=== PATIENT | female | born 1935 | race Caucasian/White ===

== ENCOUNTER 2020-05-19 12:13 | Emergency (ER) | payer MEDICARE ==
[2020-05-19 12:19] VITALS: TEMP 97.7
[2020-05-19] MEDS ORDERED: SODIUM CHLORIDE 0.9% 1,000 ML IV STA (12:28)
--- NOTE | 2020-05-19 12:29 | ED ---
Fall HPI - General Chief Complaint: Fall Stated Complaint: Syncope Time Seen by Provider: 05/19/20 12:25 Source: patient, RN notes reviewed, old records reviewed Mode of arrival: wheelchair - History of Present Illness Initial Comments: This is an 84-year-old female DF for evaluation she is safe for evaluation regards to weakness, patient's, wound and that was unable to get up from EMS and brought to ER. Patient denies any complaint. Denying pain or trauma. No recent travel history or sick contacts. 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 ROS Other: All systems not noted in ROS Statement are negative. Past Medical History Past Medical History: Cancer Additional Past Medical History / Comment(s): breast cancer 1991, heart palpitations, skin cancer, colon cancer 2006 History of Any Multi-Drug Resistant Organisms: None Reported Past Surgical History: Breast Surgery, Hysterectomy Additional Past Surgical History / Comment(s): ulcer surgery, left finger relase surgery Past Psychological History: No Psychological Hx Reported Smoking Status: Never smoker Past Alcohol Use History: None Reported Past Drug Use History: None Reported General Exam Limitations: no limitations General appearance: alert, in no apparent distress Head exam: Present: atraumatic, normocephalic, normal inspection Eye exam: Present: normal appearance, PERRL, EOMI. Absent: scleral icterus, conjunctival injection, periorbital swelling ENT exam: Present: normal exam, mucous membranes moist Neck exam: Present: normal inspection. Absent: tenderness, meningismus, lymphadenopathy Respiratory exam: Present: normal lung sounds bilaterally. Absent: respiratory distress, wheezes, rales, rhonchi, stridor Cardiovascular Exam: Present: regular rate, normal rhythm, normal heart sounds. Absent: systolic murmur, diastolic murmur, rubs, gallop, clicks GI/Abdominal exam: Present: soft, normal bowel sounds. Absent: distended, tenderness, guarding, rebound, rigid Extremities exam: Present: normal inspection, full ROM, normal capillary refill. Absent: tenderness, pedal edema, joint swelling, calf tenderness Back exam: Present: normal inspection Neurological exam: Present: alert, oriented X3, CN II-XII intact Psychiatric exam: Present: normal affect, normal mood Skin exam: Present: warm, dry, intact, normal color. Absent: rash Course Vital Signs 05/19/20 12:15 Temperature 97.7 F Pulse Rate 79 Respiratory 20 Rate Blood Pressure 127/61 O2 Sat by Pulse 99 Oximetry - Reevaluation(s) Reevaluation #1: 05/19/20 15:30 Medical record is reviewed Reevaluation #2: 05/19/20 15:31 Patient would does feel improved, prefers discharge Medical Decision Making - Medical Decision Making 84 female DF for evaluation of fall weakness. Patient was unable to ambulate brought to ER patient feeling well now able to amply here in the ER mild urinary tract infection feeling better with hydration can be discharged home - Lab Data Result diagrams: 05/19/20 12:32 05/19/20 12:32 Lab Results 05/19/20 05/19/20 05/19/20 Range/Units 12:32 12:32 12:32 WBC 3.9 (3.8-10.6) k/uL RBC 4.21 (3.80-5.40) m/uL Hgb 12.0 (11.4-16.0) gm/dL Hct 39.4 (34.0-46.0) % MCV 93.4 (80.0-100.0) fL MCH 28.4 (25.0-35.0) pg MCHC 30.4 L (31.0-37.0) g/dL RDW 13.4 (11.5-15.5) % Plt Count 130 L (150-450) k/uL Neutrophils % 82 % Lymphocytes % 10 % Monocytes % 6 % Eosinophils % 1 % Basophils % 1 % Neutrophils # 3.1 (1.3-7.7) k/uL Lymphocytes # 0.4 L (1.0-4.8) k/uL Monocytes # 0.2 (0-1.0) k/uL Eosinophils # 0.0 (0-0.7) k/uL Basophils # 0.0 (0-0.2) k/uL Hypochromasia Slight PT 9.7 (9.0-12.0) sec INR 0.9 (<1.2) APTT 22.3 (22.0-30.0) sec Sodium 137 (137-145) mmol/L Potassium 3.8 (3.5-5.1) mmol/L Chloride 109 H (98-107) mmol/L Carbon Dioxide 21 L (22-30) mmol/L Anion Gap 7 mmol/L BUN 30 H (7-17) mg/dL Creatinine 1.76 H (0.52-1.04) mg/dL Est GFR (CKD-EPI)AfAm 30 (>60 ml/min/1.73 sqM) Est GFR (CKD-EPI)NonAf 26 (>60 ml/min/1.73 sqM) Glucose 189 H (74-99) mg/dL Plasma Lactic Acid [place] (0.7-2.0) mmol/L Calcium 9.6 (8.4-10.2) mg/dL Phosphorus 3.4 (2.5-4.5) mg/dL Magnesium 1.9 (1.6-2.3) mg/dL Total Bilirubin 0.4 (0.2-1.3) mg/dL AST 29 (14-36) U/L ALT 20 (4-34) U/L Alkaline Phosphatase 62 (38-126) U/L Creatine Kinase 88 (30-135) U/L CK-MB (CK-2) (0.0-2.4) ng/mL Troponin I (0.000-0.034) ng/mL Total Protein 6.2 L (6.3-8.2) g/dL Albumin 3.8 (3.5-5.0) g/dL Urine Color Urine Appearance (Clear) Urine pH (5.0-8.0) Ur Specific [place] (1.001-1.035) Urine Protein (Negative) Urine Glucose (UA) (Negative) Urine Ketones (Negative) Urine Blood (Negative) Urine Nitrite (Negative) Urine Bilirubin (Negative) Urine Urobilinogen (<2.0) mg/dL Ur Leukocyte Esterase (Negative) Urine RBC (0-5) /hpf Urine WBC (0-5) /hpf Ur Squamous Epith Cells (0-4) /hpf Urine Bacteria (None) /hpf Hyaline Casts (0-2) /lpf Urine Mucus (None) /hpf 05/19/20 05/19/20 05/19/20 Range/Units 12:32 12:32 14:17 WBC (3.8-10.6) k/uL RBC (3.80-5.40) m/uL Hgb (11.4-16.0) gm/dL Hct (34.0-46.0) % MCV (80.0-100.0) fL MCH (25.0-35.0) pg MCHC (31.0-37.0) g/dL RDW (11.5-15.5) % Plt Count (150-450) k/uL Neutrophils % % Lymphocytes % % Monocytes % % Eosinophils % % Basophils % % Neutrophils # (1.3-7.7) k/uL Lymphocytes # (1.0-4.8) k/uL Monocytes # (0-1.0) k/uL Eosinophils # (0-0.7) k/uL Basophils # (0-0.2) k/uL Hypochromasia PT (9.0-12.0) sec INR (<1.2) APTT (22.0-30.0) sec Sodium (137-145) mmol/L Potassium (3.5-5.1) mmol/L Chloride (98-107) mmol/L Carbon Dioxide (22-30) mmol/L Anion Gap mmol/L BUN (7-17) mg/dL Creatinine (0.52-1.04) mg/dL Est GFR (CKD-EPI)AfAm (>60 ml/min/1.73 sqM) Est GFR (CKD-EPI)NonAf (>60 ml/min/1.73 sqM) Glucose (74-99) mg/dL Plasma Lactic Acid [place] 1.2 (0.7-2.0) mmol/L Calcium (8.4-10.2) mg/dL Phosphorus (2.5-4.5) mg/dL Magnesium (1.6-2.3) mg/dL Total Bilirubin (0.2-1.3) mg/dL AST (14-36) U/L ALT (4-34) U/L Alkaline Phosphatase (38-126) U/L Creatine Kinase (30-135) U/L CK-MB (CK-2) 0.9 (0.0-2.4) ng/mL Troponin I <0.012 (0.000-0.034) ng/mL Total Protein (6.3-8.2) g/dL Albumin (3.5-5.0) g/dL Urine Color Yellow Urine Appearance Cloudy H (Clear) Urine pH 5.5 (5.0-8.0) Ur Specific [place] 1.010 (1.001-1.035) Urine Protein Trace H (Negative) Urine Glucose (UA) Negative (Negative) Urine Ketones Negative (Negative) Urine Blood Trace H (Negative) Urine Nitrite Positive H (Negative) Urine Bilirubin Negative (Negative) Urine Urobilinogen <2.0 (<2.0) mg/dL Ur Leukocyte Esterase Large H (Negative) Urine RBC 4 (0-5) /hpf Urine WBC 113 H (0-5) /hpf Ur Squamous Epith Cells <1 (0-4) /hpf Urine Bacteria Many H (None) /hpf Hyaline Casts 10 H (0-2) /lpf Urine Mucus Rare H (None) /hpf - EKG Data -: EKG Interpreted by Me (EKG shows sinus rhythm of 75, TX 144 QRS 68 QTc 450) - Radiology Data Radiology results: report reviewed (X-ray chest and pelvis negative for traum atic injury), image reviewed Disposition Clinical Impression: Fall, UTI (urinary tract infection) Disposition: HOME SELF-CARE Condition: Good Instructions (If sedation given, give patient instructions): Fall Prevention for Older Adults (ED), Urinary Tract Infection in Women (ED) Prescriptions: Cephalexin [Keflex] 500 mg PO Q6HR #20 cap Is patient prescribed a controlled substance at d/c from ED?: No Referrals: Angelito Worrell MD [Primary Care Provider] - 1-2 days
[2020-05-19 12:49] LABS: Basophils % (A) 1 %; Eosinophils % (A) 1 %; HCT 39.4 % (34.0-46.0); Hypochromasia Slight; Lymphocytes # (A) 0.4 k/uL (1.0-4.8); Lymphocytes % (A) 10 %; MCH 28.4 pg (25.0-35.0); MCHC 30.4 g/dL (31.0-37.0); MCV 93.4 fL (80.0-100.0); Mean Platelet Volume 8.3; Monocytes # (A) 0.2 k/uL (0-1.0); Monocytes % (A) 6 %; Neutrophils # (A) 3.1 k/uL (1.3-7.7); Neutrophils % (A) 82 %; Platelet Count 130 k/uL (150-450); RBC 4.21 m/uL (3.80-5.40); RDW 13.4 % (11.5-15.5); WBC 3.9 k/uL (3.8-10.6)
--- NOTE | 2020-05-19 12:55 | XR ---
EXAMINATION TYPE: XR pelvis AP view DATE OF EXAM: 05/19/2020 COMPARISON: NONE HISTORY: Pain The osseous structures are intact and the joint spaces are preserved. No acute fracture is seen. Vi sualized bowel gas pattern is nonspecific. There is either contrast or staghorn calculus within the left renal pelvis. Arthropathy of the hips. Calcifications in the pelvis likely vascular. Surgical ch toro in the right lower quadrant. IMPRESSION: 1. No acute fracture. 2. Either contrast or staghorn calculus within the lower left renal pelvis.
--- NOTE | 2020-05-19 12:56 | XR ---
EXAMINATION TYPE: XR chest 1V DATE OF EXAM: 05/19/2020 COMPARISON: NONE HISTORY: Pain TECHNIQUE: Single frontal view of the chest is obtained. FINDINGS: There is no focal air space opacity, pleural effusion, or pneumothorax seen. The cardiac silhouette size is within normal limits. The osseous structures are intact. Surgical clips seen in the epigastrium IMPRESSION: No acute process.
[2020-05-19 12:59] LABS: Albumin 3.8 g/dL (3.5-5.0); Calcium 9.6 mg/dL (8.4-10.2); Magnesium 1.9 mg/dL (1.6-2.3); Phosphorus 3.4 mg/dL (2.5-4.5); Potassium 3.8 mmol/L (3.5-5.1); Total Bilirubin 0.4 mg/dL (0.2-1.3); Total Protein 6.2 g/dL (6.3-8.2)
[2020-05-19 13:06] LABS: INR 0.9 (<1.2); Partial Thromboplastin Time 22.3 sec (22.0-30.0); Prothrombin Time 9.7 sec (9.0-12.0)
[2020-05-19 13:23] LABS: Creatine Kinase MB 0.9 ng/mL (0.0-2.4); Troponin I <0.012 ng/mL (0.000-0.034)
[2020-05-19 14:45] LABS: Appearance,Urine Cloudy (Clear); Bacteria,Urine Many /hpf; Bilirubin,Urine Negative (Negative); Blood,Urine Trace (Negative); Color,Urine Yellow; Glucose,Urine (UA) Negative (Negative); Hyaline Casts,Urine 10 /lpf (0-2); Ketones,Urine Negative (Negative); Leukocyte Esterase,Urine Large (Negative); Mucus,Urine Rare /hpf; Nitrite,Urine Positive (Negative); PH, Urine 5.5 (5.0-8.0); Protein,Urine Trace (Negative); RBC,Urine 4 /hpf (0-5); Squamous Epithelial Cell,Urine <1 /hpf (0-4); Urobilinogen,Urine <2.0 mg/dL (<2.0); WBC,Urine 113 /hpf (0-5)
[2020-05-19] MEDS ORDERED: cefTRIAXone IN SWFI 1,000 MG/10 ML SYRINGE IVP STA (15:29)
[2020-05-19 15:47] VITALS: BP 141/86; PULSE 87; RESP 16
== END 2020-05-19 15:51 | disposition home or self-care (01) ==
LOC: EC 12:13
DX: N39.0 Urinary tract infection, site not specified (principal); Z88.0 Allergy status to penicillin; Z85.3 Personal history of malignant neoplasm of breast; Z85.828 Personal history of other malignant neoplasm of skin; Z85.038 Personal history of other malignant neoplasm of large intestine; W18.30XA Fall on same level, unspecified, initial encounter
CPT/HCPCS: 36415; 93005; 80053; 82550; 82553; 83605; 83735; 84100; 84484; 85025; 85610; 85730; 81001; 87086; 72170; 71045; 99284; 96374; 96361; J0696

== ENCOUNTER 2020-08-18 18:20 | Inpatient (IN) | payer MEDICARE ==
[2020-08-18] MEDS ORDERED: SODIUM CHLORIDE 0.9% 1,000 ML IV STA (18:26)
[2020-08-18] MEDS ORDERED: ADENOSINE 3 MG/ML 2 ML VIAL IVP STA (18:30)
--- NOTE | 2020-08-18 18:47 | ED ---
SOB HPI - General Stated Complaint: Weakness,High Heart Rate Time Seen by Provider: 08/18/20 18:20 - History of Present Illness Initial Comments: This 84-year-old female history of dementia palpitations recent mood swings who was brought in by EMS due to some weakness shortness of breath and palpitations. He also complained of shortness of breath with any type of movement. She is a poor historian secondary to her dementia per family she noted by paramedics have a heart rate of 170 this a go down to the 140s after a fluid bolus. Patient had no complaints chest pain no recent fevers chills nausea vomiting sweats she did have a recent negative Covid 19 test. No other complaints or modifying factors at this time MD Complaint: shortness of breath - Related Data Previous Rx's Medication Instructions Recorded Cephalexin [Keflex] 500 mg PO Q6HR #20 cap 05/19/20 Allergies Allergy/AdvReac Type Severity Reaction Status Date / Time Penicillins Allergy Rash/Hives Verified 08/18/20 18:46 Review of Systems ROS Statement: Those systems with pertinent positive or pertinent negative responses have been documented in the HPI. ROS Other: All systems not noted in ROS Statement are negative. Past Medical History Past Medical History: Cancer Additional Past Medical History / Comment(s): breast cancer 1991, heart palpitations, skin cancer, colon cancer 2006 History of Any Multi-Drug Resistant Organisms: None Reported Past Surgical History: Breast Surgery, Hysterectomy Additional Past Surgical History / Comment(s): ulcer surgery, left finger relase surgery Past Psychological History: No Psychological Hx Reported Smoking Status: Never smoker Past Alcohol Use History: None Reported Past Drug Use History: None Reported General Exam - General Exam Comments Initial Comments: this is a well-developed asthenic appearing female who is awake alert oriented times 2 General appearance: alert, in no apparent distress Head exam: Present: atraumatic, normocephalic, normal inspection Eye exam: Present: normal appearance, PERRL, EOMI. Absent: scleral icterus, conjunctival injection, periorbital swelling ENT exam: Present: mucous membranes dry Neck exam: Present: normal inspection. Absent: tenderness, meningismus, lymphadenopathy Respiratory exam: Present: normal lung sounds bilaterally. Absent: respiratory distress, wheezes, rales, rhonchi, stridor Cardiovascular Exam: Present: normal rhythm, tachycardia, normal heart sounds. Absent: systolic murmur, diastolic murmur, rubs, gallop, clicks GI/Abdominal exam: Present: soft, normal bowel sounds. Absent: distended, tenderness, guarding, rebound, rigid Extremities exam: Present: full ROM, normal capillary refill, other (Small ecchymotic areas seen to the proximal left volar forearm swallow tenderness for range of motion no step-off or crepitation.). Absent: tenderness, pedal edema, joint swelling, calf tenderness Back exam: Present: normal inspection Neurological exam: Present: alert, oriented X3, CN II-XII intact Psychiatric exam: Present: normal affect, normal mood Skin exam: Present: warm, dry, intact, normal color. Absent: rash Course Vital Signs 08/18/20 08/18/20 08/18/20 18:20 18:22 18:30 Temperature 98.5 F Pulse Rate 149 H 146 H 90 Respiratory 18 16 18 Rate Blood Pressure 113/79 113/79 113/79 O2 Sat by Pulse 100 98 Oximetry 08/18/20 08/18/20 08/18/20 18:40 19:12 20:00 Temperature Pulse Rate 77 80 67 Respiratory 18 16 16 Rate Blood Pressure 152/87 161/92 131/84 O2 Sat by Pulse 98 100 97 Oximetry 08/18/20 21:00 Temperature Pulse Rate Respiratory 16 Rate Blood Pressure 145/85 O2 Sat by Pulse Oximetry - Reevaluation(s) Reevaluation #1: 08/18/20 20:59 he postconversion EKG showed a sinus rhythm of 88. Interval 156 QRS duration 60 QT since QTC 360/435 possible left facial large with left exodeviation Procedures - Procedures Initial comment: patient did demonstrate evidence of SVT in the require urgent adenosine. She was given 6 mg with conversion to a normal sinus rhythm Medical Decision Making - Lab Data Result diagrams: 08/18/20 18:40 08/18/20 18:40 Lab Results 08/18/20 08/18/20 08/18/20 Range/Units 18:40 18:40 18:40 WBC 4.0 (3.8-10.6) k/uL RBC 3.92 (3.80-5.40) m/uL Hgb 11.7 (11.4-16.0) gm/dL Hct 37.5 (34.0-46.0) % MCV 95.7 (80.0-100.0) fL MCH 29.9 (25.0-35.0) pg MCHC 31.2 (31.0-37.0) g/dL RDW 13.0 (11.5-15.5) % Plt Count 154 (150-450) k/uL Neutrophils % 74 % Lymphocytes % 15 % Monocytes % 7 % Eosinophils % 2 % Basophils % 1 % Neutrophils # 3.0 (1.3-7.7) k/uL Lymphocytes # 0.6 L (1.0-4.8) k/uL Monocytes # 0.3 (0-1.0) k/uL Eosinophils # 0.1 (0-0.7) k/uL Basophils # 0.0 (0-0.2) k/uL Hypochromasia Slight PT 10.0 (9.0-12.0) sec INR 1.0 (<1.2) APTT 22.9 (22.0-30.0) sec D-Dimer (<0.60) mg/L FEU Sodium 139 (137-145) mmol/L Potassium 4.2 (3.5-5.1) mmol/L Chloride 113 H (98-107) mmol/L Carbon Dioxide 21 L (22-30) mmol/L Anion Gap 5 mmol/L BUN 27 H (7-17) mg/dL Creatinine 1.20 H (0.52-1.04) mg/dL Est GFR (CKD-EPI)AfAm 48 (>60 ml/min/1.73 sqM) Est GFR (CKD-EPI)NonAf 41 (>60 ml/min/1.73 sqM) Glucose 83 (74-99) mg/dL Calcium 8.8 (8.4-10.2) mg/dL Magnesium 2.0 (1.6-2.3) mg/dL Total Bilirubin 0.4 (0.2-1.3) mg/dL AST 27 (14-36) U/L ALT 18 (4-34) U/L Alkaline Phosphatase 66 (38-126) U/L Creatine Kinase 42 (30-135) U/L Troponin I (0.000-0.034) ng/mL Total Protein 5.7 L (6.3-8.2) g/dL Albumin 3.3 L (3.5-5.0) g/dL 11/02/20 11/02/20 Range/Units 18:40 18:40 WBC (3.8-10.6) k/uL RBC (3.80-5.40) m/uL Hgb (11.4-16.0) gm/dL Hct (34.0-46.0) % MCV (80.0-100.0) fL MCH (25.0-35.0) pg MCHC (31.0-37.0) g/dL RDW (11.5-15.5) % Plt Count (150-450) k/uL Neutrophils % % Lymphocytes % % Monocytes % % Eosinophils % % Basophils % % Neutrophils # (1.3-7.7) k/uL Lymphocytes # (1.0-4.8) k/uL Monocytes # (0-1.0) k/uL Eosinophils # (0-0.7) k/uL Basophils # (0-0.2) k/uL Hypochromasia PT (9.0-12.0) sec INR (<1.2) APTT (22.0-30.0) sec D-Dimer 0.61 H (<0.60) mg/L FEU Sodium (137-145) mmol/L Potassium (3.5-5.1) mmol/L Chloride (98-107) mmol/L Carbon Dioxide (22-30) mmol/L Anion Gap mmol/L BUN (7-17) mg/dL Creatinine (0.52-1.04) mg/dL Est GFR (CKD-EPI)AfAm (>60 ml/min/1.73 sqM) Est GFR (CKD-EPI)NonAf (>60 ml/min/1.73 sqM) Glucose (74-99) mg/dL Calcium (8.4-10.2) mg/dL Magnesium (1.6-2.3) mg/dL Total Bilirubin (0.2-1.3) mg/dL AST (14-36) U/L ALT (4-34) U/L Alkaline Phosphatase (38-126) U/L Creatine Kinase (30-135) U/L Troponin I <0.012 (0.000-0.034) ng/mL Total Protein (6.3-8.2) g/dL Albumin (3.5-5.0) g/dL - EKG Data -: EKG Interpreted by Me EKG Comments: initial EKG shows supraventricular tachycardia rate 144 QRS 64 QT since QTC 298/[address]-T wave configuration Disposition Clinical Impression: Supraventricular tachycardia Disposition: ADMITTED IP TO THIS HOSP Condition: Fair Referrals: Angelito Worrell MD [Primary Care Provider] - 1-2 days
[2020-08-18 18:48] LABS: Basophils % (A) 1 %; Eosinophils # (A) 0.1 k/uL (0-0.7); Eosinophils % (A) 2 %; HCT 37.5 % (34.0-46.0); HGB 11.7 gm/dL (11.4-16.0); Hypochromasia Slight; Lymphocytes # (A) 0.6 k/uL (1.0-4.8); Lymphocytes % (A) 15 %; MCH 29.9 pg (25.0-35.0); MCHC 31.2 g/dL (31.0-37.0); MCV 95.7 fL (80.0-100.0); Monocytes # (A) 0.3 k/uL (0-1.0); Monocytes % (A) 7 %; Neutrophils % (A) 74 %; Platelet Count 154 k/uL (150-450); RBC 3.92 m/uL (3.80-5.40)
[2020-08-18 18:58] LABS: Partial Thromboplastin Time 22.9 sec (22.0-30.0)
[2020-08-18 19:02] LABS: Albumin 3.3 g/dL (3.5-5.0); Calcium 8.8 mg/dL (8.4-10.2); Potassium 4.2 mmol/L (3.5-5.1); Total Bilirubin 0.4 mg/dL (0.2-1.3); Total Protein 5.7 g/dL (6.3-8.2)
--- NOTE | 2020-08-18 19:03 | XR ---
EXAMINATION TYPE: XR chest 2V DATE OF EXAM: 08/18/2020 COMPARISON: Chest x-ray 05/19/2020 HISTORY: Dysrhythmia TECHNIQUE: Frontal and lateral views of the chest are obtained. FINDINGS: There is no focal air space opacity, pleural effusion, or pneumothorax seen. The cardiac silhouette size is stable. The osseous structures are intact. Surgical clips are present in the upp er abdomen. Aorta is dense. Patient is rotated and there are overlying cardiac leads. IMPRESSION: No acute cardiopulmonary process.
[2020-08-18] MEDS ORDERED: NALOXONE 0.4 MG/ML 1 ML VIAL IV PRN (20:51)
[2020-08-18] MEDS ORDERED: atenoloL 25 MG TAB PO STA (20:56)
[2020-08-18] MEDS ORDERED: SODIUM CHLORIDE 0.9% 500 ML 500 ML IV STA (21:01)
[2020-08-18] MEDS: SODIUM CHLORIDE 0.9% 1,000 ML IV SCH (21:28)
--- NOTE | 2020-08-18 21:30 | XR ---
Left forearm HISTORY: Trauma and pain 2 views of left forearm Bone mineralization is reduced. Joint space loss present at the radiocarpal joint, carpometacarpal ezra int of the first digit. Alignment is maintained. IMPRESSION: No fracture or dislocation.
--- NOTE | 2020-08-18 22:00 | CT ---
EXAMINATION TYPE: CT angio chest DATE OF EXAM: 08/18/2020 COMPARISON: Chest x-ray same date HISTORY: Elevated d-dimer. Dysrhythmia with chest pain, shortness of breath and tachycardia, palpitat ions. CT DLP: 154.3 mGycm Automated exposure control for dose reduction was used. CONTRAST: CTA scan of the thorax is performed with IV Contrast, patient injected with 64ml mL of Isovue 370, pu lmonary embolism protocol. MIP images are created and reviewed. 3D reconstructed images are created on an independent workstation and reviewed. FINDINGS: LUNGS: The lungs are grossly clear, there is no concerning parenchymal mass or nodule identified. T here is no pleural effusion or pneumothorax seen. The tracheobronchial tree is patent. AORTA: No additional significant abnormality is seen. MEDIASTINUM: There is satisfactory enhancement of the pulmonary artery and its branches, there is no CT evidence for pulmonary embolism. There are no greater than 1 cm hilar or mediastinal lymph nodes. No pericardial effusion is seen. OTHER: The right breast prosthesis is present. Surgical clips present at the upper abdomen near the gastroesophageal junction. Low dense focus within the left lobe of the liver lateral segment measures 13 mm on axial image 122, smaller focus also present on axial image #111. Gastric wall thickening is nonspecific, low dense foci associated with the kidneys may represent cysts IMPRESSION: NO EVIDENT PULMONARY EMBOLISM. ADDITIONAL FINDINGS ABOVE.
--- NOTE | 2020-08-19 09:54 | P.CRDCN ---
History of Present Illness Consult date: 08/19/20 History of present illness: CHIEF COMPLAINT: SVT HISTORY OF PRESENT ILLNESS: This is a 84-year old female with a past medical history significant for colon cancer, breast cancer, and hyperlipidemia. Patient follows in the office with Dr. Rockwell. We have been asked to see the patient in consultation for SVT. Patient examined this morning bedside. Patient reports she has been feeling weak and has been trouble walking for the past couple weeks. She reports seen a neurologist and was told she may have Parkinson's disease. She reports yesterday she was sitting at home when she began to feel palpitations. She denies having any chest pain or shortness of breath. Patient presented to the emergency room and was found to be in SVT. She received 6 mg of adenosine and converted to sinus rhythm. She is maintaining sinus b radycardia this morning with a heart rate in the low 50s. It is noted that patient had a stress echo performed in 2019 according to office records which was negative for ischemia. DIAGNOSTICS: EKG reveals SVT Chest xray negative for acute process Laboratory data: WBC 4.0. Hemoglobin 11.7. Platelet count 154. D-dimer 0.61. Sodium 139. Potassium 4.2. BUN 27. Creatinine 1.20. Magnesium 2.0 troponin negative 3 CTA: Negative for PE Current home cardiac medications include Lipitor 20 mg daily REVIEW OF SYSTEMS: At the time of my exam: CONSTITUTIONAL: Denies fever or chills. HEENT: Denies blurred vision, vision changes, or eye pain. Denies hemoptysis CARDIOVASCULAR: Denies chest pain, orthopnea, PND or palpitations RESPIRATORY: No shortness of breath. GASTROINTESTINAL: Denies abdominal pain. Denies nausea or vomiting. HEMATOLOGIC: Denies bleeding disorders. GENITOURINARY: Denies any blood in urine. SKIN: Denies pruitis. Denies rash. PHYSICAL EXAM: VITAL SIGNS: Reviewed. GENERAL: Well-developed in no acute distress. HEENT: Head is normocephalic. Pupils are equal, round. Sclerae anicteric. Mucous membranes of the mouth are moist. Neck supple. No JVD or thyromegaly LUNGS: Respirations even and unlabored. Lungs essentially clear to auscultation bilaterally. HEART: Regular rate and rhythm. S1 and S2 heard. ABDOMEN: Soft. Nondistended. Nontender. EXTREMITIES: Normal range of motion. No clubbing or cyanosis. Peripheral pulses intact. No lower extremity edema NEUROLOGIC: Awake and alert. Oriented x 3. ASSESSMENT: SVT, status post conversion to sinus rhythm with adenosine Palpitations Hyperlipidemia, on statin therapy PLAN: Resume Lipitor Obtain 2-D echo to assess cardiac structure and function Patient bradycardic this morning with heart rate in the 50s. Will hold off on beta cooper at this time Patient to follow-up with Dr. Rockwell outpatient Nurse practitioner note has been reviewed by physician. Signing provider agrees with the documented findings, assessment, and plan of care. Past Medical History Past Medical History: Cancer Additional Past Medical History / Comment(s): breast cancer 1991, heart palpitations, skin cancer, colon cancer 2006 History of Any Multi-Drug Resistant Organisms: None Reported Past Surgical History: Breast Surgery, Hysterectomy Additional Past Surgical History / Comment(s): ulcer surgery, left finger relase surgery Past Psychological History: No Psychological Hx Reported Smoking Status: Never smoker Past Alcohol Use History: None Reported Past Drug Use History: None Reported Medications and Allergies Home Medications Medication Instructions Recorded Confirmed Type Atorvastatin Calcium [Lipitor] 20 mg PO DAILY 08/18/20 08/18/20 History FLUoxetine HCL [PROzac] 20 mg PO DAILY 08/18/20 08/18/20 History Multivitamins, Thera [Multivitamin 1 tab PO DAILY 08/18/20 08/18/20 History (formulary)] Allergies Allergy/AdvReac Type Severity Reaction Status Date / Time Penicillins Allergy Rash/Hives Verified 08/18/20 22:11 Physical Exam Vitals: Vital Signs Temp Pulse Pulse Resp BP BP Pulse Ox 08/19/20 08:45 98 F 58 L 16 130/63 100 08/19/20 04:00 98.6 F 55 L 18 121/61 98 08/19/20 00:01 98.4 F 60 18 147/65 98 08/18/20 23:29 97.6 F 56 L 16 116/65 97 08/18/20 21:00 16 145/85 08/18/20 20:00 67 16 131/84 97 08/18/20 19:12 80 16 161/92 100 08/18/20 18:40 77 18 152/87 98 08/18/20 18:30 90 18 113/79 98 08/18/20 18:22 146 H 16 113/79 08/18/20 18:20 98.5 F 149 H 18 113/79 100 Intake and Output 08/18/20 08/19/20 08/19/20 22:59 06:59 14:59 Intake Total 450 Balance 450 Intake: Oral 450 Other: Voiding Method Toilet Weight 38.555 kg 49 kg Results 08/18/20 18:40 08/18/20 18:40 Cardiac Enzymes 08/18/20 08/18/20 08/18/20 Range/Units 18:40 18:40 21:27 AST 27 (14-36) U/L Troponin I <0.012 <0.012 (0.000-0.034) ng/mL 08/19/20 Range/Units 01:24 AST (14-36) U/L Troponin I <0.012 (0.000-0.034) ng/mL Coagulation 08/18/20 Range/Units 18:40 PT 10.0 (9.0-12.0) sec APTT 22.9 (22.0-30.0) sec CBC 08/18/20 Range/Units 18:40 WBC 4.0 (3.8-10.6) k/uL RBC 3.92 (3.80-5.40) m/uL Hgb 11.7 (11.4-16.0) gm/dL Hct 37.5 (34.0-46.0) % Plt Count 154 (150-450) k/uL Comprehensive Metabolic Panel 08/18/20 Range/Units 18:40 Sodium 139 (137-145) mmol/L Potassium 4.2 (3.5-5.1) mmol/L Chloride 113 H (98-107) mmol/L Carbon Dioxide 21 L (22-30) mmol/L BUN 27 H (7-17) mg/dL Creatinine 1.20 H (0.52-1.04) mg/dL Glucose 83 (74-99) mg/dL Calcium 8.8 (8.4-10.2) mg/dL AST 27 (14-36) U/L ALT 18 (4-34) U/L Alkaline Phosphatase 66 (38-126) U/L Total Protein 5.7 L (6.3-8.2) g/dL Albumin 3.3 L (3.5-5.0) g/dL Current Medications Generic Name Dose Route Start Last Admin Trade Name Freq PRN Reason Stop Dose Admin Sodium Chloride 1,000 mls @ 20 mls/hr 08/18/20 21:00 08/18/20 21:28 Saline 0.9% IV 20 mls/hr .Q24H HARSHAD Administration Naloxone HCl 0.2 mg 08/18/20 20:51 Naloxone 0.4 Mg/Ml 1 Ml Vial IV Q2M PRN Opioid Reversal Intake and Output 08/18/20 08/19/20 08/19/20 22:59 06:59 14:59 Intake Total 450 Balance 450 Intake: Oral 450 Other: Voiding Method Toilet Weight 38.555 kg 49 kg 08/18/20 18:40 08/18/20 18:40
--- NOTE | 2020-08-19 10:39 | P.HPIM ---
History of Present Illness H&P Date: 08/19/20 Chief Complaint: Palpitations This is an 84-year-old female patient of Dr. Worrell with past medical history of dementia, hyperlipidemia, breast cancer, colon cancer, and depression. History obtained mainly from the chart, patient is a poor historian secondary to dementia. Patient reports she was at home watching a ball game on TV when she felt short of breath and palpitations. Patient presented to the emergency department where she was found to be in SVT. She received 6 mg of adenosine along with a fluid bolus and converted to sinus rhythm. Chest x-ray was negative for any acute cardiopulmonary process. Laboratory values reveal WBC 4.0, hemoglobin 12.7, d-dimer was 0.61, BUN 27, creatinine 1.2, magnesium 2.0. Troponin negative times 3. TSH and free T4 pending. She underwent a CTA chest that was negative for pulmonary embolism. Cardiology consult appreciated. 2-D echo is pending. No beta blockers initiated due to patient is bradycardic with a heart rate in the 50s. Review of Systems Constitutional: Reports fatigue, Reports weakness, Denies chills, Denies fever Eyes: denies diplopia, denies discharge, denies loss of vision Ears: deny: decreased hearing, earache, tinnitus Ears, nose, mouth and throat: Denies dysphagia, Denies headache, Denies nasal congestion, Denies nasal discharge, Denies sinus pain, Denies sinus pressure, Denies sore throat Cardiovascular: Reports palpitations, Reports shortness of breath, Denies chest pain, Denies edema, Denies high blood pressure, Denies irregular heart beat, Den ies leg edema, Denies syncope Respiratory: Denies congestion, Denies cough, Denies dyspnea, Denies wheezing Gastrointestinal: Denies abdominal pain, Denies constipation, Denies diarrhea, Denies nausea, Denies vomiting Genitourinary: Denies difficulty voiding, Denies dysuria, Denies flank pain, Denies hematuria, Denies urgency Musculoskeletal: Denies fractures, Denies limitation of motion, Denies myalgias, Denies neck pain, Denies neck stiffness Integumentary: Denies lesions, Denies pruritus, Denies rash, Denies sores, Denies wounds Neurological: Reports memory loss, Reports weakness, Denies headaches, Denies loss of vision, Denies numbness, Denies paresthesias, Denies seizures, Denies syncope Psychiatric: Reports memory loss, Denies confusion, Denies disorientation, Denies hallucinations, Denies insomnia Hematologic/Lymphatic: Denies lymphadenopathy, Denies lymphedema, Denies thrombophilia Past Medical History Past Medical History: Cancer, Dementia Additional Past Medical History / Comment(s): breast cancer 1991, heart palpitations, skin cancer, colon cancer 2006 History of Any Multi-Drug Resistant Organisms: None Reported Past Surgical History: Breast Surgery, Hysterectomy Additional Past Surgical History / Comment(s): ulcer surgery, left finger relase surgery Past Psychological History: Depression Smoking Status: Former smoker Past Alcohol Use History: None Reported Past Drug Use History: None Reported - Past Family History Father Additional Family Medical History / Comment(s): father in his 50s due to heart disease Mother Family Medical History: Cancer ( in her 60s due to unknown causes, possible cancer ) Medications and Allergies Home Medications Medication Instructions Recorded Confirmed Type Atorvastatin Calcium [Lipitor] 20 mg PO DAILY 08/18/20 08/18/20 History FLUoxetine HCL [PROzac] 20 mg PO DAILY 08/18/20 08/18/20 History Multivitamins, Thera [Multivitamin 1 tab PO DAILY 08/18/20 08/18/20 History (formulary)] Ciprofloxacin HCl [Cipro] 250 mg PO Q12H 1 Days #7 tab 08/20/20 Rx Allergies Allergy/AdvReac Type Severity Reaction Status Date / Time Penicillins Allergy Rash/Hives Verified 08/18/20 22:11 Physical Exam Vitals: Vital Signs Temp Pulse Pulse Resp BP BP Pulse Ox 08/19/20 08:45 98 F 58 L 16 130/63 100 08/19/20 04:00 98.6 F 55 L 18 121/61 98 08/19/20 00:01 98.4 F 60 18 147/65 98 08/18/20 23:29 97.6 F 56 L 16 116/65 97 08/18/20 21:00 16 145/85 08/18/20 20:00 67 16 131/84 97 08/18/20 19:12 80 16 161/92 100 08/18/20 18:40 77 18 152/87 98 08/18/20 18:30 90 18 113/79 98 08/18/20 18:22 146 H 16 113/79 08/18/20 18:20 98.5 F 149 H 18 11379 100 Intake and Output 08/18/20 08/19/20 08/19/20 22:59 06:59 14:59 Intake Total 450 Balance 450 Intake: Oral 450 Other: Voiding Method Toilet Weight 38.555 kg 49 kg - Constitutional General appearance: average body habitus, cooperative, no acute distress - EENT Eyes: EOMI, PERRLA, normal appearance ENT: hearing grossly normal, normal oropharynx, no pharyngeal erythema, no thrush - Neck Neck: no lymphadenopathy, normal ROM, no rigidity, no stridor, no thyromegaly Thyroid: bilateral: normal size, negative: enlarged, firm, nodule - Respiratory Respiratory: bilateral: CTA, negative: diminished, dullness, rales - Cardiovascular Rhythm: regular Heart sounds: normal: S1, S2 - Gastrointestinal General gastrointestinal: no distended, no hepatomegaly, normal bowel sounds, no organomegaly, soft, splenomegaly, no tenderness - Neurologic Neurologic: CNII-XII intact - Musculoskeletal Musculoskeletal: generalized weakness, strength equal bilaterally - Psychiatric Psychiatric: appropriate affect mildly confused Results CBC & Chem 7: 08/18/20 18:40 08/18/20 18:40 Labs: Abnormal Lab Results - Last 24 Hours (Table) 08/18/20 08/18/20 08/18/20 Range/Units 18:40 18:40 18:40 Lymphocytes # 0.6 L (1.0-4.8) k/uL D-Dimer 0.61 H (<0.60) mg/L FEU Chloride 113 H (98-107) mmol/L Carbon Dioxide 21 L (22-30) mmol/L BUN 27 H (7-17) mg/dL Creatinine 1.20 H (0.52-1.04) mg/dL Total Protein 5.7 L (6.3-8.2) g/dL Albumin 3.3 L (3.5-5.0) g/dL Assessment and Plan Plan: 1. SVT status post conversion to sinus rhythm with adenosine. Will obtain 2-D echo to assess cardiac structure and function, beta blockers held due to bradycardia. CTA was negative for pulmonary embolism, will check UA along with TSH and Free T4. 2. Palpitations. Secondary to SVT, now converted to sinus rhythm. 3. Bradycardia. Will hold beta blockers at this time 3. Dementia. Currently not on any medications 4. Hyperlipidemia. Lipitor 20 mg daily. 5. DVT prophylaxis. Heparin 6. GI prophylaxis. Pantoprazole The above impression and plan of care have been discussed and directed by signing physician. Esperanza Alvarado nurse practitioner acting as scribe for signing physician.
[2020-08-19 11:14] VITALS: BMI 16.9
--- NOTE | 2020-08-19 11:39 | ECHOF ---
Referral Reason:SVT MEASUREMENTS -------- HEIGHT: 170.2 cm WEIGHT: 49.0 kg BP: 121/61 RVIDd: 2.2 cm (< 3.3) IVSd: 1.1 cm (0.6 - 1.1) LVIDd: 3.7 cm (3.9 - 5.3) LVPWd: 1.1 cm (0.6 - 1.1) IVSs: 1.2 cm LVIDs: 3.0 cm LVPWs: 1.3 cm LA Diam: 4.3 cm (2.7 - 3.8) LAESV Index (A-L): 33.92 ml/m Ao Diam: 3.0 cm (2.0 - 3.7) AV Cusp: 1.3 cm (1.5 - 2.6) MV EXCURSION: 13.015 mm (> 18.000) MV EF SLOPE: 80 mm/s (70 - 150) EPSS: 0.5 cm MV E Jeffery: 0.76 m/s MV DecT: 175 ms MV A Jeffery: 0.69 m/s MV E/A Ratio: 1.09 RAP: 5.00 mmHg RVSP: 29.49 mmHg FINDINGS -------- Sinus rhythm. This was a technically good study. LV size, wall thickness and systolic function are normal, with an EF greater than 55%. The left john tricular size is normal. The right ventricle is normal in size. The left atrium is mildly dilated. LA is midly dilated 29-33ml/m2. The right atrial size is normal. There is mild aortic valve sclerosis. Mild mitral regurgitation is present. Onwa-cu-ahkxhoix tricuspid regurgitation present. Right ventricular systolic pressure is normal at < 35 mmHg. There is no pulmonic regurgitation present. The aortic root size is normal. There is no pericardial effusion. CONCLUSIONS -------- 1. LV size, wall thickness and systolic function are normal, with an EF greater than 55%. 2. The left ventricular size is normal. 3. The right ventricle is normal in size. 4. The left atrium is mildly dilated. 5. LA is midly dilated 29-33ml/m2. 6. The right atrial size is normal. 7. There is mild aortic valve sclerosis. 8. Mild mitral regurgitation is present. 9. There is no pulmonic regurgitation present. 10. The aortic root size is normal. 11. There is no pericardial effusion. YARDER: Carly Lang RDCS
[2020-08-19] MEDS: ATORVASTATIN 20 MG TAB PO SCH (11:58)
[2020-08-19 13:30] LABS: Appearance,Urine Clear (Clear); Bacteria,Urine Moderate /hpf; Bilirubin,Urine Negative (Negative); Blood,Urine Negative (Negative); Color,Urine Light Yellow; Glucose,Urine (UA) Negative (Negative); Ketones,Urine Negative (Negative); Leukocyte Esterase,Urine Large (Negative); Mucus,Urine Rare /hpf; Nitrite,Urine Positive (Negative); PH, Urine 5.5 (5.0-8.0); Protein,Urine Negative (Negative); RBC,Urine 2 /hpf (0-5); Specific Gravity,Urine 1.019 (1.001-1.035); Urobilinogen,Urine <2.0 mg/dL (<2.0); WBC,Urine 31 /hpf (0-5)
[2020-08-19 14:20] LABS: Magnesium 2.2 mg/dL (1.6-2.3)
[2020-08-19 14:38] LABS: T4, Free (Free Thyroxine) 1.32 ng/dL (0.78-2.19)
[2020-08-19] MEDS: PANTOPRAZOLE 40 MG TABLET PO SCH (17:40)
[2020-08-19] MEDS: HEPARIN SODIUM,PORCINE 5,000 UNIT/ML 1 ML VIAL SQ SCH (20:55)
[2020-08-20] MEDS: SODIUM CHLORIDE 0.9% 1,000 ML IV SCH (05:36)
[2020-08-20] MEDS: PANTOPRAZOLE 40 MG TABLET PO SCH (06:25)
[2020-08-20 09:03] VITALS: RESP 18
[2020-08-20] MEDS: ATORVASTATIN 20 MG TAB PO SCH (09:06)
[2020-08-20] MEDS: HEPARIN SODIUM,PORCINE 5,000 UNIT/ML 1 ML VIAL SQ SCH (09:06)
--- NOTE | 2020-08-20 09:32 | P.DS ---
Providers Date of admission: 08/18/20 20:52 Attending physician: Lorri Cantu Consults: 08/18/20 20:53 Consult Physician Routine Consulting Provider: Golden Costa Consult Reason/Comments: SVT Do you want consulting provider notified?: Yes Primary care physician: Angelito Worrell [facility] Course: This is an 84-year-old female patient of Dr. Worrell with past medical history of dementia, hyperlipidemia, breast cancer, colon cancer, and depression. History obtained mainly from the chart, patient is a poor historian secondary to dementia. Patient reports she was at home watching a ball game on TV when she felt short of breath and palpitations. Patient presented to the emergency department where she was found to be in SVT. She received 6 mg of adenosine along with a fluid bolus and converted to sinus rhythm. Chest x-ray was negative for any acute cardiopulmonary process. Laboratory values reveal WBC 4.0, hemoglobin 12.7, d-dimer was 0.61, BUN 27, creatinine 1.2, magnesium 2.0. Troponin negative times 3. TSH and free T4 pending. She underwent a CTA chest that was negative for pulmonary embolism. Cardiology consult appreciated. 2-D echo is pending. No beta blockers initiated due to patient is bradycardic with a heart rate in the 50s. 08/20: Echo completed yesterday showed ejection fraction greater than 55%, left atrium is mildly dilated, mild aortic valve sclerosis, mild mitral r egurgitation. UA was positive for infection, urine culture is pending. She was started on Cipro. She had no further episodes of SVT. She'll be discharged home with follow-up with cardiology for possible Holter monitor. Discharge diagnoses 1. SVT status post conversion to sinus rhythm with adenosine. 2. Palpitations. 3. Bradycardia. 3. Dementia. 4. Hyperlipidemia. 5. UTI The above impression and plan of care have been discussed and directed by signing physician. Esperanza Alvarado nurse practitioner acting as scribe for signing physician. Patient Condition at Discharge: Fair Plan - Discharge Summary Discharge Rx Participant: Yes New Discharge Prescriptions: New Ciprofloxacin HCl [Cipro] 250 mg PO Q12H 1 Days #7 tab Continue Multivitamins, Thera [Multivitamin (formulary)] 1 tab PO DAILY FLUoxetine HCL [PROzac] 20 mg PO DAILY Atorvastatin Calcium [Lipitor] 20 mg PO DAILY Discharge Medication List Atorvastatin Calcium [Lipitor] 20 mg PO DAILY 08/18/20 [History] FLUoxetine HCL [PROzac] 20 mg PO DAILY 08/18/20 [History] Multivitamins, Thera [Multivitamin (formulary)] 1 tab PO DAILY 08/18/20 [History] Ciprofloxacin HCl [Cipro] 250 mg PO Q12H 1 Days #7 tab 08/20/20 [Rx] Follow up Appointment(s)/Referral(s): Neeraj Rockwell MD [STAFF PHYSICIAN] - 1 Week (, August 28, 3:45) Angelito Worrell MD [Primary Care Provider] - 1-2 days (, August 21, 9:15) Patient Instructions/Handouts: Supraventricular Tachycardia (DC) Activity/Diet/Wound Care/Special Instructions: HEART HEALTHY DIET ACTIVITY TOLERATED Discharge Disposition: HOME SELF-CARE
[2020-08-20 11:18] VITALS: BP 135/76; PULSE 62; TEMP 97.2
--- NOTE | 2020-08-20 11:27 | P.PN ---
Subjective Progress Note Date: 08/20/20 CHIEF COMPLAINT: SVT HISTORY OF PRESENT ILLNESS: Patient examined this might bedside. She denies chest pain or pressure. Denies shortness of breath. No further episodes of SVT. She remains in sinus mechanism. Heart rate is in the 50s. Echocardiogram completed reveals ejection fraction greater than 55% and mild mitral regurgitation. PHYSICAL EXAM: VITAL SIGNS: Reviewed. GENERAL: Well-developed in no acute distress. HEENT: Head is normocephalic. Pupils are equal, round. Sclerae anicteric. Mucous membranes of the mouth are moist. Neck supple. No JVD or thyromegaly LUNGS: Respirations even and unlabored. Lungs essentially clear to auscultation bilaterally. HEART: Regular rate and rhythm. S1 and S2 heard. ABDOMEN: Soft. Nondistended. Nontender. EXTREMITIES: Normal range of motion. No clubbing or cyanosis. Peripheral pulse s intact. No lower extremity edema NEUROLOGIC: Awake and alert. Oriented x 3. ASSESSMENT: SVT, status post conversion to sinus rhythm with adenosine Palpitations Hyperlipidemia, on statin therapy PLAN: Patient bradycardic with heart rate in the 50s. Will hold off on beta cooper at this time Patient is stable for discharge from a cardiac perspective Patient to follow-up with Dr. Rockwell outpatient Nurse practitioner note has been reviewed by physician. Signing provider agrees with the documented findings, assessment, and plan of care. Objective - Vital Signs Vital signs: Vital Signs Temp 97.2 F L 08/20/20 11:14 Pulse 62 08/20/20 11:14 Resp 18 08/20/20 11:14 BP 135/76 08/20/20 11:14 Pulse Ox 100 08/20/20 11:14 Intake & Output 08/19/20 08/20/20 08/20/20 18:59 06:59 18:59 Intake Total 1060 0 Balance 1060 0 Weight 49 kg 45.3 kg Intake: Oral 1060 0 Other: Voiding Method Toilet Toilet # Voids 2 1 1 - Labs CBC & Chem 7: 08/18/20 18:40 08/18/20 18:40 Labs: Abnormal Lab Results - Last 24 Hours (Table) 08/19/20 Range/Units 12:30 Urine Nitrite Positive H (Negative) Ur Leukocyte Esterase Large H (Negative) Urine WBC 31 H (0-5) /hpf Urine Bacteria Moderate H (None) /hpf Urine Mucus Rare H (None) /hpf Microbiology - Last 24 Hours (Table) 08/19/20 12:30 Urine Culture - Preliminary Urine,Voided
== END 2020-08-20 13:09 | disposition home or self-care (01) | DRG 309 ==
LOC: EC 18:20 → 3SCARD 20:52
PROVIDERS: ADMIT Family Medicine; ATTEND Family Medicine
DX: I47.1 Supraventricular tachycardia (principal); N39.0 Urinary tract infection, site not specified; F32.9 Major depressive disorder, single episode, unspecified; F03.90 Unspecified dementia, unspecified severity, without behavioral disturbance, psychotic disturbance, mood disturbance, and anxiety; E78.5 Hyperlipidemia, unspecified; Z85.3 Personal history of malignant neoplasm of breast; Z85.828 Personal history of other malignant neoplasm of skin; Z85.038 Personal history of other malignant neoplasm of large intestine; Z79.899 Other long term (current) drug therapy; Z87.891 Personal history of nicotine dependence; Z90.710 Acquired absence of both cervix and uterus; I08.0 Rheumatic disorders of both mitral and aortic valves; R00.1 Bradycardia, unspecified
CPT/HCPCS: 36415; 71046; 71275; 80053; 81001; 82550; 83735; 84439; 84443; 84484; 85025; 85379; 85610; 85730; 87077; 87086; 87186; 93005; 93306; 96361; 96374; 99285

== ENCOUNTER → 2021-03-30 | Outpatient (CLI) | payer MEDICARE ==
[2021-03-30 13:41] LABS: Basophils % (A) 1 %; Eosinophils # (A) 0.1 k/uL (0-0.7); Eosinophils % (A) 2 %; HCT 37.8 % (34.0-46.0); HGB 11.9 gm/dL (11.4-16.0); Hypochromasia Slight; Lymphocytes # (A) 0.8 k/uL (1.0-4.8); Lymphocytes % (A) 18 %; MCH 29.6 pg (25.0-35.0); MCHC 31.6 g/dL (31.0-37.0); MCV 93.8 fL (80.0-100.0); Monocytes # (A) 0.2 k/uL (0-1.0); Monocytes % (A) 5 %; Neutrophils % (A) 72 %; Platelet Count 183 k/uL (150-450); RBC 4.02 m/uL (3.80-5.40); RDW 13.7 % (11.5-15.5); WBC 4.2 k/uL (3.8-10.6)
[2021-03-30 13:48] LABS: Albumin 3.9 g/dL (3.5-5.0); Calcium 9.5 mg/dL (8.4-10.2); Potassium 4.9 mmol/L (3.5-5.1); Total Bilirubin 0.4 mg/dL (0.2-1.3); Total Protein 6.4 g/dL (6.3-8.2)
== END | disposition home or self-care (01) ==
LOC: EEVIPCON 12:13 → LABPAT 12:13
PROVIDERS: ATTEND Urology
DX: Z01.812 Encounter for preprocedural laboratory examination (principal); N20.0 Calculus of kidney
CPT/HCPCS: 36415; 80053; 85025

== ENCOUNTER 2021-04-08 07:30 | Inpatient (IN) | payer MEDICARE ==
--- NOTE | 2021-04-07 11:54 | P.GSHP ---
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 SHe come for a left pcnl. The risks, complications and alternatives have been discussed including sepsis, bleeding , injury to the kidney and adjacent organs, - Constitutional Constitutional: Denies chills, Denies fever - EENT Eyes: denies blurred vision, denies pain Ears, nose, mouth and throat: Denies headache, Denies sore throat - Cardiovascular Cardiovascular: Denies chest pain, Denies shortness of breath - Respiratory Respiratory: Denies cough, Denies 7 - Gastrointestinal Gastrointestinal: Denies abdominal pain, Denies diarrhea, Denies nausea, Denies vomiting - Genitourinary (Female) Genitourinary: Denies dysuria, Denies hematuria - Genitourinary (Male) Genitourinary: Denies dysuria, Denies hematuria - Musculoskeletal Musculoskeletal: Denies myalgias - Integumentary Integumentary: Denies pruritus, Denies rash - Neurological Neurological: Denies numbness, Denies weakness - Psychiatric Psychiatric: Denies anxiety, Denies depression - Endocrine Endocrine: Denies fatigue, Denies weight change Past Medical History Past Medical History: Cancer, Dementia, Hyperlipidemia, Neurologic Disorder Additional Past Medical History / Comment(s): Hx breast cancer 1991, skin cancer and colon cancer 2006, heart palpitations. Hx falling, reluctant to use walker. Early Stage Parkinson's. Vitamin D Deficiency. History of Any Multi-Drug Resistant Organisms: None Reported Past Surgical History: Breast Surgery, Hysterectomy Additional Past Surgical History / Comment(s): Ulcer surgery, left finger release surgery. Past Anesthesia/Blood Transfusion Reactions: No Reported Reaction Past Psychological History: Depression Additional Psychological History / Comment(s): Major Depressive Disorder. Smoking Status: Former smoker Past Alcohol Use History: None Reported Additional Past Alcohol Use History / Comment(s): Quit smoking 25-30 yrs ago. Past Drug Use History: None Reported - Past Family History Father Additional Family Medical History / Comment(s): Father in his 50's due to heart disease. Mother Family Medical History: Cancer Medications and Allergies Home Medications Medication Instructions Recorded Confirmed Type Multivitamins, Thera [Multivitamin 1 tab PO DAILY 08/18/20 04/02/21 History (formulary)] Atorvastatin [Lipitor] 10 mg PO DAILY 04/02/21 04/02/21 History Mirtazapine [Remeron] 7.5 mg PO HS 04/02/21 04/02/21 History Allergies Allergy/AdvReac Type Severity Reaction Status Date / Time Penicillins Allergy Rash/Hives Verified 04/02/21 15:07 Surgical - Exam - General mild pain, thin well developed, well nourished - Eyes PERRL - ENT no hearing loss - Neck trachea midline - Respiratory normal expansion, normal respiratory effort - Cardiovascular Rhythm: regular - Abdomen Abdomen: soft, non tender - Neurologic normal coordination, normal sensation - Musculoskeletal normal gait, normal posture - Psychiatric oriented to time, oriented to person, oriented to place, speech is normal, memory intact Results - Imaging CT scan - abdomen: report reviewed, image reviewed CT scan - pelvis: report reviewed, image reviewed Assessment and Plan Assessment: Impression: Left staghorn calculous, recurrent uti Plan: Left PCNL
[~2021-04-08 07:30] MED LIST: DEXAMETHASONE SOD PHOSPHATE 4 MG/ML 1 ML VIAL IV ONE; GENTAMICIN 70 MG in SODIUM CHLORIDE 0.9% 100 ML IVPB PRN; HYDROmorphone 0.5 MG/0.5 ML SYRINGE IVP PRN; LIDOCAINE 1% (10MG/ML) FOR IV START INTRADERMA PRN
--- NOTE | 2021-04-08 07:47 | XR ---
EXAMINATION TYPE: XR KUB DATE OF EXAM: 04/08/2021 7:42 AM CLINICAL HISTORY: Left kidney stone. TECHNIQUE: Single supine KUB image of the abdomen is obtained. COMPARISON: None. FINDINGS: Scattered gas is seen in non-distended small bowel loops. Gas and fecal material is seen in non-distended colon. There is a 4.1 cm dense lobulated structure identified in the left abdomen, of uncertain etiology. Anastomotic sutures are present in the right abdomen. Surgical clips are noted at the gastroesophagea l junction. IMPRESSION: 4.1 cm dense lobulated structure in the left abdomen is indeterminant on this examination. It may rep resent a large renal calculus or other etiology. CT could be obtained if clinically warranted. Postoperative changes are also seen, as described.
[2021-04-08] MEDS: LACTATED RINGERS 1,000 ML IV SCH (08:12)
[2021-04-08] MEDS ORDERED: ONDANSETRON 4 MG/2 ML VIAL ONE (08:13)
[2021-04-08] MEDS ORDERED: PROPOFOL 10 MG/ML 20 ML VIAL IV ONE (08:45)
[2021-04-08] MEDS ORDERED: LIDOCAINE 1% INJ 10MG/ML (20 ML MDV) ONE (08:45)
[2021-04-08] MEDS ORDERED: SUCCINYLCHOLINE CHLORIDE 100 MG/5 ML SYR IV ONE (08:45)
[2021-04-08] MEDS ORDERED: fentaNYL (PF) 50 MCG/ML 2 ML AMP ONE (08:45)
[2021-04-08] MEDS ORDERED: IOPAMIDOL-370 50ML BTL IRRIGATION ONE (08:59)
[2021-04-08] MEDS ORDERED: MAG HYDROX/AL HYDROX/SIMETH 30 ML CUP PO PRN (11:28)
[2021-04-08] MEDS ORDERED: ONDANSETRON 4 MG/2 ML VIAL IVP PRN (11:28)
[2021-04-08] MEDS ORDERED: NALOXONE 0.4 MG/ML 1 ML VIAL IV PRN (11:30)
--- NOTE | 2021-04-08 11:37 | P.OP ---
Date of Procedure: 04/08/21 Preoperative Diagnosis: Left renal stones, large, infected Postoperative Diagnosis: Left renal stones, large, infected Procedure(s) Performed: Cystoscopy, placement of occluding balloon catheter left, percutaneous nephrostomy 2 (Dr. Hernandez ) percutaneous nephrostolithotomy (large) with ultrasound placement of 24-Palauan reentry nephrostomy tube Anesthesia: JERSEY Surgeon: Koby Gerard Estimated Blood Loss (ml): 50 Pathology: other (Stone) Condition: stable Disposition: PACU Indications for Procedure: The patient is 85. She has had recurring urinary infections with bacteria consistent with stone formation. These infections are asymptomatic. She has a 4 cm plus left renal partial staghorn calculus. We discussed treatment options for the recurrent infections and stone. It was elected to remove the stone percutaneously Description of Procedure: The patient is brought to the operating suite. She is given a general endotracheal anesthesia on the transport gurney. She's placed in a frog position with sterile prep and drape. Cystoscopy Foroblique lens and 21-Palauan sheath identifies a left ureteral orifice which was intubated with a running balloon catheter passed up to the UPJ. It is secured to a 16-Palauan Mccullough The patient is placed in a prone position with care to airways and extremities. Dr. Hernandez of radiology performed percutaneous access to a left middle pole calyx thoroughly. I then dilate the tract to 30-Palauan. His note the there is either capsular scarring or significant mobility to the kidney as this is a difficult dilation. Once I dilate the tract to 30-Palauan pass a reentry sheath into the collecting system. The stone was identified. It appears to be an old hard calcium oxalate stone. With ultrasound I break the stone and suction or grasp the fragments and remove them. This removes the renal pelvic stone and the large middle pole stone but there is still lower pole calyceal stone. I can barely identify the ostium with the rigid scope but I eventually do but it is going to be too difficult to enter the rigid scope into the collecting system with the edema and the kidney as it sits. I then have Dr. Hernandez performed percutaneous access to the lower pole calyx of. We're able this obtain percutaneous access. We're unable dilate the tract into the lower pole calyx such that I could introduce a sheath. We attempted several techniques to do so but we are unable to 2 place an access sheath to the stone. I thus elected terminate the procedure. I place a 24-Palauan reentry sheath to the original access. I will leave that to dilate the tract so that I can look and secondarily with the flexible scope and laser lithotripsy to remove this. Patient awake and returned recovery room good condition. The position of the tube was confirmed fluoroscopically. The patient how procedure well. Blood loss approximately 50 mL.
[2021-04-08] MEDS ORDERED: HYDROmorphone PCA 10 MG/50 ML BAG IV PRN (12:30)
--- NOTE | 2021-04-08 12:54 | FL ---
EXAMINATION TYPE: FL Perc Nephrostomy New Access DATE OF EXAM: 04/08/2021 COMPARISON: CT from outside institution, KUB 04/08/2021 HISTORY: Hydronephrosis, ureteral obstruction with staghorn calculus. PROCEDURE: Maximal barrier technique was utilized, hand hygiene obtained with soap and water and alcohol-based h and rub. The skin overlying the left kidney was localized using fluoroscopy and the overlying skin p repped and draped. Skin elijah was made with a scalpel. Access was gained under fluoroscopy, following placement of a ureteral occlusion balloon by the referring clinician and instillation of air in the renal collecting system with a 21-gauge needle to the posterior left kidney. The access site was dila lenny, access site was upsized, safety wire deployed and subsequently a sheath was advanced into the re nal pelvis following dilation with balloon along the tract. The patient underwent nephrolithotomy by the referring clinician. I was asked to return to the operating room to provide a secondary access. Using similar technique ov erlying the calculus at the lower pole left kidney and following air instillation in the collecting s ystem a 21-gauge needle was advanced and subsequently a wire advanced through the needle into the col lecting system which was subsequently snared by the clinician through the existing sheath. Catheter a nd wire were upsized. Secondary access was attempted, balloon could not be advanced into the collecti ng system however. Additional attempts were aborted by the referring clinician. The patient remained in stable condition without complication. The patient was discharged to observation in the care of a nesthesia. 4.4 minutes fluoroscopy time, 6 intraoperative C-arm images document the procedure IMPRESSION: STATUS POST NEPHROSTOMY PLACEMENT FOR NEPHROLITHOTOMY WITH FLUOROSCOPIC GUIDANCE. THIS PROCEDURE PER FORMED BY THE UNDERSIGNED.
[2021-04-08] MEDS: MIRTAZAPINE 15 MG TAB PO SCH (22:32)
[2021-04-09] MEDS: DEXTROSE 5%-0.45% NACL 1,000 ML IV SCH ×6 (04:31→23:42)
[2021-04-09 06:10] LABS: HCT 26.9 % (34.0-46.0); MCH 30.4 pg (25.0-35.0); MCHC 33.2 g/dL (31.0-37.0); MCV 91.5 fL (80.0-100.0); Mean Platelet Volume 8.3; Platelet Count 160 k/uL (150-450); RBC 2.94 m/uL (3.80-5.40); RDW 13.8 % (11.5-15.5); WBC 9.9 k/uL (3.8-10.6)
[2021-04-09 06:25] LABS: HGB 8.9 gm/dL (11.4-16.0)
[2021-04-09] MEDS: LACTATED RINGERS 1,000 ML IV SCH (07:16)
[2021-04-09] MEDS: ATORVASTATIN 10 MG TAB PO SCH (08:13)
[2021-04-09] MEDS: ACETAMINOPHEN TAB 325 MG TAB PO PRN (11:09)
[2021-04-09] MEDS: HYDROcodone/APAP 5-325MG 1 EACH TAB PO PRN ×2 (12:09→17:46)
--- NOTE | 2021-04-09 12:20 | P.PN ---
Subjective Progress Note Date: 04/09/21 The patient is in her first postoperative day from an incompletely done percutaneous nephrostolithotomy on the left side to a very large stone (greater than 4 cm). The patient's nephrostomy tube has some old blood. The tube was irrigated. Her vital signs are stable. Her abdomen is soft. Her voided urine is clear. She feels relatively well. She does have some hunger. Her dressing had some bleeding last night and this morning is not too bad. I will increase her diet. Discussed with her and her daughter about a secondary nephrostolithotomy to remove the stone that is presumably infected. Tentatively I place this for next Tuesday depending on how the urine looks Objective - Vital Signs Vital signs: Vital Signs Temp 98.2 F 04/09/21 11:56 Pulse 79 04/09/21 11:56 Resp 18 04/09/21 11:56 BP 103/62 04/09/21 11:56 Pulse Ox 98 04/09/21 11:56 Intake & Output 04/08/21 04/09/21 04/09/21 18:59 06:59 18:59 Intake Total 1101.75 360 240 Output Total 730 1100 Balance 371.75 -740 240 Weight 49 kg Intake: IV 1101.75 Intake, IV Titration 360 Amount Dextrose 5%-0.45% NaCl 1, 150 000 ml @ 100 mls/hr IV . Q10H [facility] Rx#:[id number] Lactated Ringers 1,000 ml 210 @ 20 mls/hr IV .Q24H [facility] Rx#:[id number] Oral 240 Output: Drainage 200 Left Lower Back 100 Left Posterior Lateral 100 Chest Urine 710 900 Estimated Blood Loss 20 Other: Voiding Method Indwelling Catheter Indwelling Catheter - Labs CBC & Chem 7: 04/09/21 05:41 Labs: Abnormal Lab Results - Last 24 Hours (Table) 04/09/21 Range/Units 05:41 RBC 2.94 L (3.80-5.40) m/uL Hgb 8.9 L D (11.4-16.0) gm/dL Hct 26.9 L (34.0-46.0) %
[2021-04-09 15:30] VITALS: BMI 17.4
[2021-04-09] MEDS: MIRTAZAPINE 15 MG TAB PO SCH (20:51)
[2021-04-10] MEDS: LACTATED RINGERS 1,000 ML IV SCH (06:30)
[2021-04-10] MEDS: ATORVASTATIN 10 MG TAB PO SCH (08:01)
--- NOTE | 2021-04-10 08:01 | P.PN ---
Subjective Progress Note Date: 04/10/21 The patient is in her second postoperative day from a complicated left percutaneous nephrostolithotomy. She is feeling much better. She still has mild to moderate pain. The urine is clearing out of the nephrostomy tube. I will observe her for another 24 hours. I will plan on discharge home on . A secondary nephrostolithotomy will be done next Tuesday assuming the urine continues to clear. Objective - Vital Signs Vital signs: Vital Signs Temp 99.1 F 04/10/21 04:23 Pulse 94 04/10/21 04:23 Resp 18 04/10/21 04:23 BP 96/59 04/10/21 04:23 Pulse Ox 99 04/10/21 04:23 Intake & Output 04/09/21 04/10/21 04/10/21 18:59 06:59 18:59 Intake Total 1680 1500 Output Total 850 1050 Balance 830 450 Weight 49 kg Intake: Intake, IV Titration 1200 1200 Amount Dextrose 5%-0.45% NaCl 1, 1200 1200 000 ml @ 100 mls/hr IV . Q10H [facility] Rx#:[id number] Oral 480 300 Output: Drainage 50 200 Left Lower Back 50 200 Urine 800 850 Uretheral (Mccullough) 650 Other: Voiding Method Indwelling Catheter Indwelling Catheter - Labs CBC & Chem 7: 04/09/21 05:41
[2021-04-10] MEDS: HYDROcodone/APAP 5-325MG 1 EACH TAB PO PRN ×3 (11:43→21:30)
[2021-04-10] MEDS: DEXTROSE 5%-0.45% NACL 1,000 ML IV SCH (15:52)
--- NOTE | 2021-04-10 17:13 | P.PN ---
Progress Note - Text Progress Note Date: 04/10/21 This patient underwent a pcnl left 4 8 hours ago. she is 85 , lives alone. Because of weakness, anemia post surgical i will keep her in the hospital another 24 hours to make sure she can ambulate, handle the nephrostomy tube and that her pain is under control
[2021-04-10] MEDS: MIRTAZAPINE 15 MG TAB PO SCH (20:01)
[2021-04-11] MEDS: DEXTROSE 5%-0.45% NACL 1,000 ML IV SCH ×2 (05:45→19:45)
[2021-04-11] MEDS: LACTATED RINGERS 1,000 ML IV SCH (05:46)
[2021-04-11] MEDS: ATORVASTATIN 10 MG TAB PO SCH (08:43)
--- NOTE | 2021-04-11 09:05 | P.PN ---
Subjective Progress Note Date: 04/11/21 The patient is in the hospital status post percutaneous nephrostolithotomy left, incomplete. She is slowly recuperating. She has a large nephrostomy tube in the left side. There is leakage around the nephrostomy tube which is normal. The urine is clearing. She is still having some pain. Her mobility is limited and she is still being evaluated by physical therapy. She is not able to ambulate by herself yet. He is scheduled for a second look next Tuesday. She is not ready to go home due to her lack of ambulation and self-care. I will continue to observe her, get a PT assessment and reassess in the morning as to discharge assessment and follow-up. Objective - Vital Signs Vital signs: Vital Signs Temp 97.8 F 04/11/21 04:12 Pulse 77 04/11/21 04:12 Resp 18 04/11/21 04:12 BP 147/74 04/11/21 04:12 Pulse Ox 99 04/11/21 04:12 Intake & Output 04/10/21 04/11/21 04/11/21 18:59 06:59 18:59 Intake Total 1400 Output Total 1100 600 Balance -1100 800 Intake: Intake, IV Titration 900 Amount Dextrose 5%-0.45% NaCl 1, 900 000 ml @ 75 mls/hr IV . [id number] [facility] Rx#:[id number] Oral 500 Output: Drainage 100 600 Left Lower Back 100 600 Urine 1000 Uretheral (Mccullough) 1000 Other: Voiding Method Bedside Commode Bedside Commode Diaper Diaper Incontinent Incontinent # Voids 1 4 - Labs CBC & Chem 7: 04/09/21 05:41
[2021-04-11] MEDS: ACETAMINOPHEN TAB 325 MG TAB PO PRN ×2 (12:42→20:08)
[2021-04-11] MEDS: MIRTAZAPINE 15 MG TAB PO SCH (20:09)
[2021-04-11] MEDS: SULFAMETHOX-TMP 800-160MG 1 EACH TAB PO SCH (20:09)
[2021-04-12] MEDS: LACTATED RINGERS 1,000 ML IV SCH ×2 (01:15→22:59)
[2021-04-12] MEDS: DEXTROSE 5%-0.45% NACL 1,000 ML IV SCH ×2 (05:24→20:30)
[2021-04-12] MEDS: SULFAMETHOX-TMP 800-160MG 1 EACH TAB PO SCH (07:57)
[2021-04-12] MEDS: ATORVASTATIN 10 MG TAB PO SCH (07:57)
[2021-04-12] MEDS: ACETAMINOPHEN TAB 325 MG TAB PO PRN ×3 (08:01→20:54)
--- NOTE | 2021-04-12 08:44 | P.PN ---
Subjective Progress Note Date: 04/12/21 The patient is status post left percutaneous nephrostolithotomy for infected stone. She has had a slow postoperative recuperation. She is just starting to eat adequately. She is ambulating with some assistance. She is set up for rehab tomorrow because she is not able to care for herself or she was pre operatively. I did not feel safe sending her home by herself given that she had a nephrostomy tube and could not ambulate adequately and could not care for herself. She will stay in the rehab until Tuesday when we'll do a secondary percutaneous nephrostolithotomy. Hopefully the nephrostomy tube will be removed at that point in time. Whether she'll need to go back to rehab or can go home will be dependent on how she does. I'll obtain labs preoperatively today. Her urine is clearing. Her vital signs are stable. I did resume her Bactrim. She'll stay on that until her surgery. Objective - Vital Signs Vital signs: Vital Signs Temp 98.6 F 04/12/21 04:12 Pulse 75 04/12/21 04:12 Resp 16 04/12/21 04:12 BP 145/84 04/12/21 04:12 Pulse Ox 98 04/12/21 04:12 Intake & Output 04/11/21 04/12/21 04/12/21 18:59 06:59 18:59 Intake Total 900 1500 Output Total 300 Balance 900 1200 Intake: Intake, IV Titration 900 900 Amount Dextrose 5%-0.45% NaCl 1, 900 900 000 ml @ 75 mls/hr IV . [id number] [facility] Rx#:[id number] Oral 600 Output: Drainage 300 Left Lower Back 300 Other: Voiding Method Bedside Commode Bedside Commode Bedside Commode Diaper Diaper Diaper Incontinent Incontinent Incontinent # Voids 3 2 - Labs CBC & Chem 7: 04/09/21 05:41
[2021-04-12 09:51] LABS: HCT 26.2 % (34.0-46.0); HGB 8.5 gm/dL (11.4-16.0); MCH 30.1 pg (25.0-35.0); MCHC 32.3 g/dL (31.0-37.0); MCV 93.1 fL (80.0-100.0); Platelet Count 162 k/uL (150-450); RBC 2.82 m/uL (3.80-5.40); RDW 13.6 % (11.5-15.5); WBC 4.8 k/uL (3.8-10.6)
[2021-04-12 09:52] LABS: Basophils % (A) 0 %; Eosinophils # (A) 0.1 k/uL (0-0.7); Eosinophils % (A) 3 %; Hypochromasia Slight; Lymphocytes # (A) 0.5 k/uL (1.0-4.8); Lymphocytes % (A) 11 %; Mean Platelet Volume 8.4; Monocytes # (A) 0.3 k/uL (0-1.0); Monocytes % (A) 6 %; Neutrophils # (A) 3.7 k/uL (1.3-7.7); Neutrophils % (A) 78 %
[2021-04-12 10:21] LABS: ALT 21 U/L (4-34); AST 30 U/L (14-36); African American GFR (CKD) 38 (>60 ml/min/1.73 sqM); Albumin 2.7 g/dL (3.5-5.0); Albumin/Globulin Ratio 1.1; Alkaline Phosphatase 65 U/L (38-126); Anion Gap 5 mmol/L; Blood Urea Nitrogen 26 mg/dL (7-17); Calcium 8.8 mg/dL (8.4-10.2); Carbon Dioxide 21 mmol/L (22-30); Chloride 112 mmol/L (98-107); Globulin 2.4 g/dL; Glucose 119 mg/dL (74-99); Non-African American GFR(CKD) 33 (>60 ml/min/1.73 sqM); Potassium 4.2 mmol/L (3.5-5.1); Sodium 138 mmol/L (137-145); Total Bilirubin 0.6 mg/dL (0.2-1.3); Total Protein 5.1 g/dL (6.3-8.2)
[2021-04-12] MEDS: MIRTAZAPINE 15 MG TAB PO SCH (20:53)
[2021-04-12] MEDS: SULFAMETHOX-TMP 400-80MG 1 EACH TAB PO SCH (20:53)
--- NOTE | 2021-04-13 08:08 | P.DS ---
Providers Date of admission: 04/11/21 12:29 Attending physician: Koby Gerard Primary care physician: Viji Doran [facility] Hospital Course: 85 yo female admitted with an infected left renal stone. SHe underwent a pcnl 04/08 . the stone was not completely removed. SHe is due for a secondary pcnl left on04/15. She was self reliant prior to surgery but cannot completely care for herself so she will be transferred to a rehab until the secondary pcnl on 04/15 SHe will go with the ntube. SHe will resume her own meds plus bactrim Her condition is good. Patient Condition at Discharge: Good Plan - Discharge Summary Discharge Rx Participant: Yes New Discharge Prescriptions: New Sulfamethox-Tmp 800-160Mg [Bactrim DS 800-160 mg] 1 tab PO Q12HR #14 tab No Action Multivitamins, Thera [Multivitamin (formulary)] 1 tab PO DAILY Atorvastatin [Lipitor] 10 mg PO DAILY Mirtazapine [Remeron] 7.5 mg PO HS Discharge Medication List Multivitamins, Thera [Multivitamin (formulary)] 1 tab PO DAILY 08/18/20 [History] Atorvastatin [Lipitor] 10 mg PO DAILY 04/02/21 [History] Mirtazapine [Remeron] 7.5 mg PO HS 04/02/21 [History] Sulfamethox-Tmp 800-160Mg [Bactrim DS 800-160 mg] 1 tab PO Q12HR #14 tab 04/13/21 [Rx] Discharge Disposition: TRANSFER TO SNF/ECF
[2021-04-13] MEDS: SULFAMETHOX-TMP 400-80MG 1 EACH TAB PO SCH (08:57)
[2021-04-13] MEDS: ATORVASTATIN 10 MG TAB PO SCH (08:57)
[2021-04-13] MEDS: ACETAMINOPHEN TAB 325 MG TAB PO PRN (09:00)
[2021-04-13 11:31] VITALS: BP 97/62; PULSE 85; RESP 18; TEMP 97.2
[2021-04-13] MEDS: DEXTROSE 5%-0.45% NACL 1,000 ML IV SCH (13:13)
== END 2021-04-13 13:30 | DRG 661 ==
LOC: OR 07:30 → 5NMEDONC 14:03 → OR 04-09 08:37 → OBSVTOIN 04-11 12:29
PROVIDERS: ADMIT Urology; ATTEND Urology
PROC: 0T9130Z Drainage of Left Kidney with Drainage Device, Percutaneous Approach (ICD-10-PCS; principal; 2021-04-08 09:00)
PROC: 0T768DZ Dilation of Right Ureter with Intraluminal Device, Via Natural or Artificial Opening Endoscopic (ICD-10-PCS; principal; 2021-04-08 09:00)
PROC: 0TC18ZZ Extirpation of Matter from Left Kidney, Via Natural or Artificial Opening Endoscopic (ICD-10-PCS; principal; 2021-04-08 09:00)
DX: N13.6 Pyonephrosis (principal); N20.0 Calculus of kidney; G20 Parkinson's disease; D64.9 Anemia, unspecified; E78.5 Hyperlipidemia, unspecified; F02.80 Dementia in other diseases classified elsewhere, unspecified severity, without behavioral disturbance, psychotic disturbance, mood disturbance, and anxiety; F32.9 Major depressive disorder, single episode, unspecified; Z87.440 Personal history of urinary (tract) infections; Z91.81 History of falling; Z88.0 Allergy status to penicillin; Z79.899 Other long term (current) drug therapy; Z85.038 Personal history of other malignant neoplasm of large intestine; Z85.3 Personal history of malignant neoplasm of breast; Z85.828 Personal history of other malignant neoplasm of skin; Z87.891 Personal history of nicotine dependence; Z90.710 Acquired absence of both cervix and uterus
CPT/HCPCS: 50432; 74018; 80053; 82365; 85025; 85027; 86850; 86900; 86901; 94760

== ENCOUNTER 2021-04-15 10:01 | Day surgery (SDC) | payer MEDICARE ==
--- NOTE | 2021-04-11 13:47 | CONS ---
CONSULTATION Mrs. Doan is 85. 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 She underwent a percutaneous nephrostolithotomy on Tuesday. Postoperatively, she had some postoperative anemia. This did not require transfusion. She was ambulatory and self-care prior to surgery, but now cannot care for herself. I therefore do not feel comfortable sending her home for this reason. She would have to care for a nephrostomy tube and feed and dress herself, which she is just recuperating with at this point in time. When I deem it safe to discharge her home I will do so, but in the meanwhile she will continue to need care. She is scheduled for a secondary nephrostolithotomy on Tuesday next week. Her vital signs are otherwise stable. MMODL / IJN: [id number] /
[2021-04-14 11:29] VITALS: BMI 17.4
--- NOTE | 2021-04-14 19:57 | P.GSHP ---
History of Present Illness H&P Date: 04/14/21 85 yo female who underwent a left pcnl last . The stone was very large[>4cm] and the buld was removed but there remains a larger fragment in the llp Since the stone is infected she comes for secondary pcnl to remove the remainder of the stone - Constitutional Constitutional: Denies chills, Denies fever - EENT Eyes: denies blurred vision, denies pain Ears, nose, mouth and throat: Denies headache, Denies sore throat - Cardiovascular Cardiovascular: Denies chest pain, Denies shortness of breath - Respiratory Respiratory: Denies cough, Denies 7 - Gastrointestinal Gastrointestinal: Denies abdominal pain, Denies diarrhea, Denies nausea, Denies vomiting - Genitourinary (Female) Genitourinary: Denies dysuria, Denies hematuria - Genitourinary (Male) Genitourinary: Denies dysuria, Denies hematuria - Musculoskeletal Musculoskeletal: Denies myalgias - Integumentary Integumentary: Denies pruritus, Denies rash - Neurological Neurological: Denies numbness, Denies weakness - Psychiatric Psychiatric: Denies anxiety, Denies depression - Endocrine Endocrine: Denies fatigue, Denies weight change Past Medical History Past Medical History: Cancer, Dementia, Hyperlipidemia, Neurologic Disorder Additional Past Medical History / Comment(s): kidney stones-admission 04-08-21,breast cancer 1991, heart palpitations, skin cancer, colon cancer 200 7,SVT,hx falling-reluctant to use walker,early stage Parkinson's,vitamin D deficiency History of Any Multi-Drug Resistant Organisms: None Reported Past Surgical History: Breast Surgery, Hysterectomy Additional Past Surgical History / Comment(s): left nephrostomy tube placed- nephrolithotomy 04-08-21,ulcer surgery, left finger relase surgery Past Anesthesia/Blood Transfusion Reactions: No Reported Reaction Smoking Status: Former smoker - Past Family History Mother Family Medical History: Cancer Father Family Medical History: Coronary Artery Disease (CAD) Additional Family Medical History / Comment(s): in 50s due to heart disease Medications and Allergies Home Medications Medication Instructions Recorded Confirmed Type Multivitamins, Thera [Multivitamin 1 tab PO DAILY 08/18/20 04/14/21 History (formulary)] Atorvastatin [Lipitor] 10 mg PO DAILY 04/02/21 04/14/21 History Mirtazapine [Remeron] 7.5 mg PO HS 04/02/21 04/14/21 History Sulfamethox-Tmp 800-160Mg [Bactrim 1 tab PO Q12HR #14 tab 04/13/21 04/14/21 Rx DS 800-160 mg] Allergies Allergy/AdvReac Type Severity Reaction Status Date / Time Penicillins Allergy Rash/Hives Verified 04/14/21 10:12 Surgical - Exam - General well developed, well nourished - Eyes PERRL - ENT no hearing loss - Neck trachea midline - Respiratory normal expansion - Cardiovascular Rhythm: regular - Abdomen left perc neph tube Abdomen: soft, non tender - Integumentary no rash, no growths - Neurologic normal coordination, normal sensation - Musculoskeletal normal gait, normal posture - Psychiatric oriented to time, oriented to person, oriented to place, speech is normal, memory intact Assessment and Plan Assessment: Impression: retained infected left renal stone post pcnl Plan: Secondary pcnl left
[~2021-04-15 10:01] MED LIST changes: -GENTAMICIN 70 MG in SODIUM CHLORIDE 0.9% 100 ML IVPB PRN; +GENTAMICIN 80 MG in SODIUM CHLORIDE 0.9% 100 ML IVPB PRN; +LACTATED RINGERS 1,000 ML IV SCH; +MIDAZOLAM 2 MG/2 ML VIAL IV PRN; +ONDANSETRON 4 MG/2 ML VIAL IVP ONE; +Pre Op ABX Message 1 EACH MISC MISCELLANE ONE
[2021-04-15 10:44] VITALS: TEMP 97.6
--- NOTE | 2021-04-15 10:48 | XR ---
EXAMINATION TYPE: XR KUB DATE OF EXAM: 04/15/2021 COMPARISON: 04/08/2021 HISTORY: Kidney stone TECHNIQUE: One view abdominal series FINDINGS: Large left renal calculus measuring 2.2 cm. Additional nonspecific calcifications in pelvis noted. On e of which could potentially be within the ureter. Patient is rotated with arthropathy of the hips an d degenerative change of the spine. Bowel gas pattern nonspecific. IMPRESSION: 1. Large left renal calculus.
[2021-04-15 11:07] LABS: Basophils % (A) 0 %; Eosinophils # (A) 0.2 k/uL (0-0.7); Eosinophils % (A) 3 %; HCT 25.8 % (34.0-46.0); HGB 8.7 gm/dL (11.4-16.0); Lymphocytes # (A) 0.7 k/uL (1.0-4.8); Lymphocytes % (A) 12 %; MCH 30.2 pg (25.0-35.0); MCHC 33.8 g/dL (31.0-37.0); MCV 89.5 fL (80.0-100.0); Mean Platelet Volume 8.2; Monocytes # (A) 0.5 k/uL (0-1.0); Monocytes % (A) 9 %; Neutrophils % (A) 73 %; Platelet Count 242 k/uL (150-450); RBC 2.88 m/uL (3.80-5.40); RDW 13.5 % (11.5-15.5); WBC 5.5 k/uL (3.8-10.6)
[2021-04-15] MEDS ORDERED: fentaNYL (PF) 50 MCG/ML 2 ML AMP ONE (11:54)
[2021-04-15] MEDS ORDERED: SUCCINYLCHOLINE CHLORIDE 100 MG/5 ML SYR IV ONE (11:54)
[2021-04-15] MEDS ORDERED: PROPOFOL 10 MG/ML 20 ML VIAL IV ONE (11:54)
[2021-04-15] MEDS ORDERED: PHENYLEPHRINE-0.9% NACL SYG 1,000 MCG/10 ML SYRINGE ONE (11:54)
[2021-04-15] MEDS ORDERED: LIDOCAINE 1% INJ 10MG/ML (20 ML MDV) ONE (11:54)
[2021-04-15] MEDS ORDERED: IOPAMIDOL-370 50ML BTL MISCELLANE ONE (11:57)
--- NOTE | 2021-04-15 14:30 | P.OP ---
Date of Procedure: 04/15/21 Preoperative Diagnosis: retained large renal stone left Postoperative Diagnosis: Same Procedure(s) Performed: Left percutaneous nephrostolithotomy with the laser lithotripsy Anesthesia: [place] Surgeon: Koby Gerard Estimated Blood Loss (ml): 25 Pathology: other (Stone) Condition: stable Disposition: PACU Indications for Procedure: The patient is 85. She had a greater than 4 cm stone that was removed last week but there is still a 2 cm fragment left middle pole calyceal diverticula. She comes for removal this. I will do this through her established nephrostomy Description of Procedure: Patient is brought to the operating suite. On the transport gurney she's given general endotracheal anesthesia. A Mccullough catheters introduced sterilely. She's placed in a prone position. I remove the dressing. The nephrostomy tube in skin is prepped up. Through the nephrostomy tube I passed an 035 wire down the ureter. I then pass the flexible nephroscope through the established 24-Korean track into the collecting system. Move the stone that it dropped into the UPJ area. I then tediously identify the middle pole calyx with the calyceal diverticula. I'm able to penetrate into that. With the 270 laser probe I break the stone into multiple small fragments. Some of the fragments Freddy of UPJ and the rest remain in the calyx appeared to pass a mini rigid nephroscope into the UPJ and grasp all the fragments up. I then pass the flexible neph roscope into the calyceal diverticulum the middle pole and basket all the fragments up. At the end of the procedure there is no significant fragments remaining endoscopically or fluoroscopically. I elect to remove the prostate tube and the Mccullough. The wound is dressed the patient awake and returned recovery in good condition The successful secondary percutaneous nephrostolithotomy. The patient week transferred back to the extended care facility until she rehabs.
[2021-04-15 15:07] VITALS: RESP 16
[2021-04-15 15:57] VITALS: BP 137/74; PULSE 69
--- NOTE | 2021-04-16 09:39 | FL ---
EXAMINATION TYPE: FL Perc Nephro Tube Change DATE OF EXAM: 04/15/2021 COMPARISON: NONE HISTORY: Prostate TECHNIQUE: Fluoroscopy. FINDINGS: Fluoroscopic guidance was provided during procedure of 48 seconds. IMPRESSION: As Above.
== END 2021-04-15 16:14 ==
LOC: OR 10:01
PROVIDERS: ATTEND Urology
DX: N20.0 Calculus of kidney (principal); E78.5 Hyperlipidemia, unspecified; F03.90 Unspecified dementia, unspecified severity, without behavioral disturbance, psychotic disturbance, mood disturbance, and anxiety; Z85.3 Personal history of malignant neoplasm of breast; Z85.038 Personal history of other malignant neoplasm of large intestine; I47.1 Supraventricular tachycardia; G20 Parkinson's disease; E55.9 Vitamin D deficiency, unspecified; Z90.710 Acquired absence of both cervix and uterus; Z98.890 Other specified postprocedural states; Z93.6 Other artificial openings of urinary tract status; Z87.891 Personal history of nicotine dependence; Z80.9 Family history of malignant neoplasm, unspecified; Z82.49 Family history of ischemic heart disease and other diseases of the circulatory system; Z79.899 Other long term (current) drug therapy; Z88.0 Allergy status to penicillin; F32.9 Major depressive disorder, single episode, unspecified
CPT/HCPCS: 85025; 82365; 50435; 74018; 50080; C1769; J1100; J2405; J2001; J3010; J1580; J2370; J0330; J2704; Q9967

== ENCOUNTER 2021-04-19 12:39 | Inpatient (IN) | payer MEDICARE ==
[2021-04-19] MEDS ORDERED: SODIUM CHLORIDE 0.9% 500 ML 500 ML IV STA (13:04)
--- NOTE | 2021-04-19 13:20 | ED ---
General Adult HPI - General Chief complaint: Syncope Stated complaint: Poss Seizure Time Seen by Provider: 04/19/21 12:58 Source: patient, RN notes reviewed, old records reviewed Mode of arrival: EMS Limitations: no limitations - History of Present Illness Initial comments: 85-year-old female presenting for evaluation of seizure versus syncope. Patient is wheelchair-bound, was out for a role, she had become less responsive and had some shaking of her right arm and left leg. There was a second episode which was witnessed by staff which she did have an elevated heart rate, question tonic-clonic seizure activity. She was somewhat confused afterwards. History is suggestive of new onset seizure. She denies any complaints the time my evaluation. No chest pain or palpitations. She's been doing well otherwise. Eating and drinking normally. No vomiting. No fever. No previous history of seizure disorder. - Related Data Home Medications Medication Instructions Recorded Confirmed Multivitamins, Thera [Multivitamin 1 tab PO DAILY@0800 08/18/20 04/19/21 (formulary)] Atorvastatin [Lipitor] 10 mg PO HS 04/02/21 04/19/21 Mirtazapine [Remeron] 7.5 mg PO HS 04/02/21 04/19/21 Acetaminophen Tab [Tylenol] 650 mg PO Q6H PRN 04/19/21 04/19/21 Sulfamethox-Tmp 800-160Mg [Bactrim 1 tab PO BID@0800,199904/19/21 04/19/21 DS 800-160 mg] Allergies Allergy/AdvReac Type Severity Reaction Status Date / Time Penicillins Allergy Rash/Hives Verified 04/19/21 15:03 Review of Systems ROS Statement: Those systems with pertinent positive or pertinent negative responses have been documented in the HPI. ROS Other: All systems not noted in ROS Statement are negative. Past Medical History Past Medical History: Cancer, Dementia Additional Past Medical History / Comment(s): breast cancer 1991, heart palpitations, skin cancer, colon cancer 2006 History of Any Multi-Drug Resistant Organisms: None Reported Past Surgical History: Breast Surgery, Hysterectomy Additional Past Surgical History / Comment(s): ulcer surgery, left finger relase surgery Past Anesthesia/Blood Transfusion Reactions: No Reported Reaction Past Psychological History: Depression Smoking Status: Former smoker Past Alcohol Use History: None Reported Past Drug Use History: None Reported - Past Family History Father Additional Family Medical History / Comment(s): Father in his 50's due to heart disease. Mother Family Medical History: Cancer General Exam Limitations: no limitations General appearance: alert, in no apparent distress Head exam: Present: atraumatic, normocephalic Eye exam: Present: normal appearance, PERRL ENT exam: Present: normal exam Neck exam: Present: normal inspection. Absent: tenderness, meningismus Respiratory exam: Present: normal lung sounds bilaterally. Absent: respiratory distress, wheezes Cardiovascular Exam: Present: regular rate, normal rhythm GI/Abdominal exam: Present: soft. Absent: distended, tenderness, guarding, rebound Extremities exam: Present: normal inspection, pedal edema (Trace swelling left leg). Absent: calf tenderness Neurological exam: Present: alert, oriented X3, CN II-XII intact. Absent: motor sensory deficit Psychiatric exam: Present: normal affect, normal mood Skin exam: Present: warm, dry, intact Course Vital Signs 04/19/21 04/19/21 04/19/21 12:42 14:20 15:26 Temperature 98.2 F 98 F Pulse Rate 76 71 74 Respiratory 16 16 16 Rate Blood Pressure 104/62 119/62 121/63 O2 Sat by Pulse 99 100 98 Oximetry - Reevaluation(s) Reevaluation #1: 04/19/21 15:[address] Perez who will admit. EKG Findings - EKG Comments: EKG Findings:: EKG: Normal sinus rhythm, rate of 72, AZ interval 154, QRS duration 76, QTC 438, no ST segment elevation. Medical Decision Making - Medical Decision Making 85-year-old female with history suggestive of new onset seizure. Patient well- appearing at the time of my evaluation. She has stable vitals. She is in sinus rhythm. She has good strength in all extremities 5 out of 5, NIH is 0. She has no physical complaints. Workup is initiated which shows abnormalities however overall consistent, she has a anemia 8.3 with recent 8.7. She has mildly elevated kidney function which is also chronic. Chest x-rays negative for acute cardiopulmonary disease. Head CT is negative for intracranial hemorrhage or mass effect. Ultrasound does show a left popliteal DVT which is likely acute on chronic. Given her anemia and recent urological procedure anticoagulation will be held awaiting vascular recommendation. Neurovascular and neurology has been placed on consult. Diagnosis: Suspect new onset seizure, left popliteal DVT, anemia, CK D. - Lab Data Result diagrams: 04/19/21 13:21 04/19/21 13:21 Lab Results 04/19/21 04/19/21 04/19/21 Range/Units 13:21 13:21 13:21 WBC 6.7 (3.8-10.6) k/uL RBC 2.87 L (3.80-5.40) m/uL Hgb 8.3 L (11.4-16.0) gm/dL Hct 26.3 L (34.0-46.0) % MCV 91.5 (80.0-100.0) fL MCH 28.9 (25.0-35.0) pg MCHC 31.6 (31.0-37.0) g/dL RDW 14.3 (11.5-15.5) % Plt Count 357 (150-450) k/uL MPV 7.6 Neutrophils % 84 % Lymphocytes % 8 % Monocytes % 5 % Eosinophils % 1 % Basophils % 1 % Neutrophils # 5.6 (1.3-7.7) k/uL Lymphocytes # 0.5 L (1.0-4.8) k/uL Monocytes # 0.3 (0-1.0) k/uL Eosinophils # 0.1 (0-0.7) k/uL Basophils # 0.0 (0-0.2) k/uL Hypochromasia Slight PT 10.3 (9.0-12.0) sec INR 1.0 (<1.2) APTT 21.8 L (22.0-30.0) sec Sodium (137-145) mmol/L Potassium (3.5-5.1) mmol/L Chloride (98-107) mmol/L Carbon Dioxide (22-30) mmol/L Anion Gap mmol/L BUN (7-17) mg/dL Creatinine (0.52-1.04) mg/dL Est GFR (CKD-EPI)AfAm (>60 ml/min/1.73 sqM) Est GFR (CKD-EPI)NonAf (>60 ml/min/1.73 sqM) Glucose (74-99) mg/dL Calcium (8.4-10.2) mg/dL Magnesium (1.6-2.3) mg/dL Total Bilirubin (0.2-1.3) mg/dL AST (14-36) U/L ALT (4-34) U/L Alkaline Phosphatase (38-126) U/L Troponin I (0.000-0.034) ng/mL Total Protein (6.3-8.2) g/dL Albumin (3.5-5.0) g/dL Urine Color Yellow Urine Appearance Cloudy H (Clear) Urine pH 5.5 (5.0-8.0) Ur Specific Hermon 1.015 (1.001-1.035) Urine Protein 1+ H (Negative) Urine Glucose (UA) Negative (Negative) Urine Ketones Negative (Negative) Urine Blood Large H (Negative) Urine Nitrite Negative (Negative) Urine Bilirubin Negative (Negative) Urine Urobilinogen <2.0 (<2.0) mg/dL Ur Leukocyte Esterase Large H (Negative) Urine RBC >182 H (0-5) /hpf Urine WBC 137 H (0-5) /hpf Ur Squamous Epith Cells <1 (0-4) /hpf Urine Mucus Rare H (None) /hpf 04/19/21 04/19/21 Range/Units 13:21 13:21 WBC (3.8-10.6) k/uL RBC (3.80-5.40) m/uL Hgb (11.4-16.0) gm/dL Hct (34.0-46.0) % MCV (80.0-100.0) fL MCH (25.0-35.0) pg MCHC (31.0-37.0) g/dL RDW (11.5-15.5) % Plt Count (150-450) k/uL MPV Neutrophils % % Lymphocytes % % Monocytes % % Eosinophils % % Basophils % % Neutrophils # (1.3-7.7) k/uL Lymphocytes # (1.0-4.8) k/uL Monocytes # (0-1.0) k/uL Eosinophils # (0-0.7) k/uL Basophils # (0-0.2) k/uL Hypochromasia PT (9.0-12.0) sec INR (<1.2) APTT (22.0-30.0) sec Sodium 138 (137-145) mmol/L Potassium 4.7 (3.5-5.1) mmol/L Chloride 110 H (98-107) mmol/L Carbon Dioxide 22 (22-30) mmol/L Anion Gap 6 mmol/L BUN 28 H (7-17) mg/dL Creatinine 1.54 H (0.52-1.04) mg/dL Est GFR (CKD-EPI)AfAm 35 (>60 ml/min/1.73 sqM) Est GFR (CKD-EPI)NonAf 30 (>60 ml/min/1.73 sqM) Glucose 89 (74-99) mg/dL Calcium 8.7 (8.4-10.2) mg/dL Magnesium 2.3 (1.6-2.3) mg/dL Total Bilirubin 0.3 (0.2-1.3) mg/dL AST 23 (14-36) U/L ALT 20 (4-34) U/L Alkaline Phosphatase 70 (38-126) U/L Troponin I <0.012 (0.000-0.034) ng/mL Total Protein 5.3 L (6.3-8.2) g/dL Albumin 2.8 L (3.5-5.0) g/dL Urine Color Urine Appearance (Clear) Urine pH (5.0-8.0) Ur Specific Hermon (1.001-1.035) Urine Protein (Negative) Urine Glucose (UA) (Negative) Urine Ketones (Negative) Urine Blood (Negative) Urine Nitrite (Negative) Urine Bilirubin (Negative) Urine Urobilinogen (<2.0) mg/dL Ur Leukocyte Esterase (Negative) Urine RBC (0-5) /hpf Urine WBC (0-5) /hpf Ur Squamous Epith Cells (0-4) /hpf Urine Mucus (None) /hpf Disposition Clinical Impression: New onset seizure, DVT of popliteal vein, Anemia Disposition: ADMITTED IP TO THIS [facility] Instructions (If sedation given, give patient instructions): Seizure/Epilepsy Discharge Instructions & Follow-Up Referrals: Viji Lees DO [Primary Care Provider] - 1-2 days
[2021-04-19 13:39] LABS: Basophils % (A) 1 %; Eosinophils # (A) 0.1 k/uL (0-0.7); Eosinophils % (A) 1 %; HCT 26.3 % (34.0-46.0); HGB 8.3 gm/dL (11.4-16.0); Hypochromasia Slight; Lymphocytes # (A) 0.5 k/uL (1.0-4.8); Lymphocytes % (A) 8 %; MCH 28.9 pg (25.0-35.0); MCHC 31.6 g/dL (31.0-37.0); MCV 91.5 fL (80.0-100.0); Mean Platelet Volume 7.6; Monocytes # (A) 0.3 k/uL (0-1.0); Monocytes % (A) 5 %; Neutrophils # (A) 5.6 k/uL (1.3-7.7); Neutrophils % (A) 84 %; Platelet Count 357 k/uL (150-450); RBC 2.87 m/uL (3.80-5.40); RDW 14.3 % (11.5-15.5); WBC 6.7 k/uL (3.8-10.6)
[2021-04-19 13:44] LABS: Albumin 2.8 g/dL (3.5-5.0); Calcium 8.7 mg/dL (8.4-10.2); Magnesium 2.3 mg/dL (1.6-2.3); Potassium 4.7 mmol/L (3.5-5.1); Total Bilirubin 0.3 mg/dL (0.2-1.3); Total Protein 5.3 g/dL (6.3-8.2)
[2021-04-19 13:52] LABS: Prothrombin Time 10.3 sec (9.0-12.0)
[2021-04-19 13:54] LABS: Partial Thromboplastin Time 21.8 sec (22.0-30.0)
--- NOTE | 2021-04-19 14:06 | XR ---
EXAMINATION TYPE: XR chest 2V DATE OF EXAM: 04/19/2021 COMPARISON: 08/18/2020 HISTORY: Syncope TECHNIQUE: Frontal and lateral views of the chest are obtained. FINDINGS AND IMPRESSION: Right breast prostheses projects over the lower hemithorax therefore limiting evaluation. Focal airspace disease, pneumothorax or pleural effusion. The cardio mediastinal silhouette is within normal limit. No acute osseous abnormality. Surgical shawanda again demonstrated over the upper abdomen.
--- NOTE | 2021-04-19 14:11 | CT ---
EXAMINATION TYPE: CT brain wo con DATE OF EXAM: 04/19/2021 COMPARISON: None HISTORY: Syncope TECHNIQUE: CT scan of the head performed without contrast CT DLP: 1052.4 mGycm Automated exposure control for dose reduction was used. FINDINGS: No evidence of acute intracranial hemorrhage midline shift or mass effect. The calvillo-white matter differentiation is preserved. The CSF spaces and ventricles are prominent consistent with atrophy. Patchy low attenuation demonstrated in the deep white matter likely on the basis of lacunar infarcts. Scattered foci of low-attenuation are seen in the bilateral temporal lobes and right frontal lobe and bilateral basal ganglia likely representing remote lacunar infarcts. Focal calcification seen in the right basal ganglia likely chronic. No acute orbital, osseous or soft tissue abnormality. Mild mucosal thickening seen in the paranasal sinuses. Paranasal sinuses and mastoid air cells are cr eated. Atherosclerotic calcifications are seen in the intracranial internal carotid arteries and right verte bral artery. IMPRESSION: 1. NO ACUTE INTRACRANIAL HEMORRHAGE, MIDLINE SHIFT OR MASS EFFECT. 2. NONACUTE FINDINGS, SEE BODY OF REPORT.
[2021-04-19 14:16] LABS: Appearance,Urine Cloudy (Clear); Bilirubin,Urine Negative (Negative); Blood,Urine Large (Negative); Color,Urine Yellow; Glucose,Urine (UA) Negative (Negative); Ketones,Urine Negative (Negative); Leukocyte Esterase,Urine Large (Negative); Mucus,Urine Rare /hpf; Nitrite,Urine Negative (Negative); PH, Urine 5.5 (5.0-8.0); Protein,Urine 1+ (Negative); RBC,Urine >182 /hpf (0-5); Specific Gravity,Urine 1.015 (1.001-1.035); Squamous Epithelial Cell,Urine <1 /hpf (0-4); Urobilinogen,Urine <2.0 mg/dL (<2.0); WBC,Urine 137 /hpf (0-5)
--- NOTE | 2021-04-19 14:43 | US ---
EXAMINATION TYPE: US venous doppler duplex LE LT DATE OF EXAM: 04/19/2021 2:24 PM COMPARISON: NONE CLINICAL HISTORY: swelling. left leg swelling SIDE PERFORMED: left TECHNIQUE: The lower extremity deep venous system is examined utilizing real time linear array sonog dipesh with graded compression, doppler sonography and color-flow sonography. VESSELS IMAGED: Common Femoral Vein Deep Femoral Vein Greater Saphenous Vein * Femoral Vein Popliteal Vein Small Saphenous Vein * Proximal Calf Veins (* superficial vessels) Left Leg: Positive for DVT left popliteal vein IMPRESSION: There is evidence of acute and chronic deep vein thrombosis in the left popliteal vein.
[2021-04-19] MEDS ORDERED: ACETAMINOPHEN TAB 325 MG TAB PO PRN ×2 (15:43→17:38)
[2021-04-19] MEDS ORDERED: NALOXONE 0.4 MG/ML 1 ML VIAL IV PRN (15:43)
[2021-04-19] MEDS ORDERED: cefTRIAXone IN SWFI 1,000 MG/10 ML SYRINGE IVP STA (15:45)
[2021-04-19] MEDS ORDERED: levETIRAcetam IV 1,000 MG in SALINE 1 100ML.BAG IVPB STA (15:46)
[2021-04-19] MEDS: SODIUM CHLORIDE 0.9% 1,000 ML IV SCH (16:20)
[2021-04-19] MEDS: MIRTAZAPINE 15 MG TAB PO SCH (20:19)
[2021-04-19] MEDS: ATORVASTATIN 10 MG TAB PO SCH (20:19)
--- NOTE | 2021-04-19 23:58 | P.HPIM ---
History of Present Illness H&P Date: 04/19/21 Chief Complaint: witnessed seziure Ms. Doan is an 85-year-old female with past medical history of breast cancer in 1991, colon cancer in 2006, cognitive impairment/dementia, major depressive disorder brought in by her for evaluation of seizures. Patient's daughter at the bedside and mentions that earlier this morning she noticed that her mother was shaking her right arm and left leg and became less responsive and this episode lasted for few minutes and later on she recovered. There was another episode when the patient was in a wheelchair, and her eyes were rolled and again she noticed that the patient was shaking her hands and legs, after this the anne ent was confused for a few minutes. Currently the patient is lying comfortably in bed appears to be in no acute distress. On questioning her, she does not remember much about the episode that happened. She is denies having any headaches, blurring of vision or weakness of her extremities. She denies having any change in her speech. Patient denied having any fevers chills or rigors. No chest pain or palpitations. No cough or difficulty breathing. No abdominal pain nausea vomiting or diarrhea. No dysuria or hematuria. Patient never had a history of seizure disorder. She was treated for breast cancer and has been in remission since 1991. And she also has history of colon cancer in 2006. Patient was recently admitted to the hospital for large staghorn calculi in the left kidney. She had left percutaneous nephro lithotomy with laser lithotripsy by Dr. Solomon. And her daughter mentions that since being discharged from the hospital patient did not regain her strength back and could not ambulate by herself. In the ER at the time of admission patient's vitals temperature 98.2, heart rate 76, respiratory 16, blood pressure 104/62 saturating at 99% on room air. Patient had chest x-ray done in the ED showing no acute cardiopulmonary process CT of the head showing no acute intracranial hemorrhage. 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 On reviewing her labs white count of 6.7, hemoglobin 8.3, platelets 357. Sodium 138, potassium 4.7, chloride 110, bicarb 22, BUN 28, creatinine 1.54. Urine analysis is positive for large leukocyte esterase large blood and negative for nitrites. Review of Systems REVIEW OF SYSTEMS: CONSTITUTIONAL: No fever, no malaise, no fatigue. HEENT: No headache, no neck stiffness, no blurring of vision CARDIOVASCULAR: No chest pain, palpitations or lower extremity swelling PULMONARY: No cough or difficulty in breathing GASTROINTESTINAL: No abdoimal pain, nausea or vomiting NEUROLOGICAL: No weakness of extremities HEMATOLOGICAL: Denies any bleeding or petechiae. GENITOURINARY: Denies any burning micturition, frequency, or urgency. MUSCULOSKELETAL/RHEUMATOLOGICAL: Denies any joint pain, swelling, or any muscle pain. ENDOCRINE: Denies polyuria polydipsia or heat or cold intolerance The rest of the 14-point review of systems is negative. Past Medical History Past Medical History: Cancer, Dementia Additional Past Medical History / Comment(s): breast cancer 1991, heart palpitations, skin cancer, colon cancer 2006 History of Any Multi-Drug Resistant Organisms: None Reported Past Surgical History: Breast Surgery, Hysterectomy Additional Past Surgical History / Comment(s): ulcer surgery, left finger relase surgery Past Anesthesia/Blood Transfusion Reactions: No Reported Reaction Past Psychological History: Depression Smoking Status: Former smoker Past Alcohol Use History: None Reported Past Drug Use History: None Reported - Past Family History Father Additional Family Medical History / Comment(s): Father in his 50's due to heart disease. Mother Family Medical History: Cancer Medications and Allergies Home Medications Medication Instructions Recorded Confirmed Type Multivitamins, Thera [Multivitamin 1 tab PO DAILY@0800 08/18/20 04/19/21 History (formulary)] Atorvastatin [Lipitor] 10 mg PO HS 04/02/21 04/19/21 History Mirtazapine [Remeron] 7.5 mg PO HS 04/02/21 04/19/21 History Acetaminophen Tab [Tylenol] 650 mg PO Q6H PRN 04/19/21 04/19/21 History Sulfamethox-Tmp 800-160Mg [Bactrim 1 tab PO BID@0800,199904/19/21 04/19/21 History DS 800-160 mg] Allergies Allergy/AdvReac Type Severity Reaction Status Date / Time Penicillins Allergy Rash/Hives Verified 04/19/21 15:03 Physical Exam Vitals: Vital Signs Temp Pulse Resp BP Pulse Ox 04/19/21 17:17 98.6 F 74 16 106/69 99 04/19/21 15:26 98 F 74 16 121/63 98 04/19/21 14:20 71 16 119/62 100 04/19/21 12:42 98.2 F 76 16 104/62 99 Intake and Output 04/19/21 04/19/21 04/19/21 06:59 14:59 22:59 Other: Weight 46.72 kg PHYSICAL EXAMINATION: GENERAL: Comfortably sitting up in the bed appears to be no acute distress. Daughter at bed side. HEENT: Pupils are round and equally reacting to light. EOMI. No scleral icterus. No conjunctival pallor. CARDIOVASCULAR: S1 and S2 present. No murmurs, rubs, or gallops. PULMONARY: Bilateral breath sounds positive. No wheeze or crackles. CHEST - Right breast implant ABDOMEN: Soft,Non -tender, normal bowel sounds. No guarding or rigidity. MUSCULOSKELETAL: No joint swelling or deformity. EXTREMITIES: Left Lower extremity bigger in girth compared to right NEUROLOGICAL: Gross neurological examination did not reveal any focal deficits. SKIN:No rash Results CBC & Chem 7: 04/19/21 13:21 04/19/21 13:21 Labs: Abnormal Lab Results - Last 24 Hours (Table) 04/19/21 04/19/21 04/19/21 Range/Units 13:21 13:21 13:21 RBC 2.87 L (3.80-5.40) m/uL Hgb 8.3 L (11.4-16.0) gm/dL Hct 26.3 L (34.0-46.0) % Lymphocytes # 0.5 L (1.0-4.8) k/uL APTT 21.8 L (22.0-30.0) sec Chloride (98-107) mmol/L BUN (7-17) mg/dL Creatinine (0.52-1.04) mg/dL Total Protein (6.3-8.2) g/dL Albumin (3.5-5.0) g/dL Urine Appearance Cloudy H (Clear) Urine Protein 1+ H (Negative) Urine Blood Large H (Negative) Ur Leukocyte Esterase Large H (Negative) Urine RBC >182 H (0-5) /hpf Urine WBC 137 H (0-5) /hpf Urine Mucus Rare H (None) /hpf 04/19/21 Range/Units 13:21 RBC (3.80-5.40) m/uL Hgb (11.4-16.0) gm/dL Hct (34.0-46.0) % Lymphocytes # (1.0-4.8) k/uL APTT (22.0-30.0) sec Chloride 110 H (98-107) mmol/L BUN 28 H (7-17) mg/dL Creatinine 1.54 H (0.52-1.04) mg/dL Total Protein 5.3 L (6.3-8.2) g/dL Albumin 2.8 L (3.5-5.0) g/dL Urine Appearance (Clear) Urine Protein (Negative) Urine Blood (Negative) Ur Leukocyte Esterase (Negative) Urine RBC (0-5) /hpf Urine WBC (0-5) /hpf Urine Mucus (None) /hpf Assessment and Plan Assessment: ASSESSMENT New onset seizures Acute left popliteal vein DVT Chronic anemia CKD stage III Possible UTI History of breast cancer in 1991 status post mastectomy History of colon cancer in 2006 History of major depressive disorder Former smoker PLAN: Patient does not have history of seizure disorder, this is the first episode ever in her life so new onset seizure. CAT scan of the brain has been negative. Neurology has been consulted. Patient recently had urological procedure done at discharge from the hospital and since then was bedbound, found to have acute DVT in the left popliteal vein. Patient has history of CKD and anemia, vascular surgery consulted for recommendations regarding anticoagulation. As the patient recently had urological procedure, urology has been consulted. Patient urinalysis for possible UTI so we will continue with ceftriaxone. Patient has been restarted on her home medications. The treatment plan was discussed in detail with the patient and her daughter at bedside.
[2021-04-20] MEDS: MULTIVITAMINS, THERA 1 EACH TAB PO SCH (07:58)
--- NOTE | 2021-04-20 09:51 | P.CNNES ---
History of Present Illness Consult date: 04/20/21 Requesting physician: Nahun Washburn Reason for Consult: concern for new onset seizure History of Present Illness: This is an 85-year-old woman with medical history of right breast cancer in 1991 s/p resection and chemotherapy (years back), colon cancer 2006 s/p partial resection, dementia and chronic kidney insufficiency who presented to the emergency department on 04/19/2021 for being less responsiveness and some shaking of the right arm and left leg. Some of the history is obtained from medical record. The patient she stated that that she resides at [facility] and yesterday she was notified by her daughter that she was having uncontrollable movement of bilateral upper extremity to her knowledge. Patient stated that she was outside and she does not recall what transpired. She denies any history of seizures. She denies any bowel incontinence or tongue soreness associate with this episode. Per the ED note that she had another episode which was witnessed by staff and her heart rate was elevated and that she has questionable tonic- clonic seizure activity and somewhat confused afterward. Patient does not have any history of the prior seizures in the past. No fevers, patient has been eating drinking normally and had has been doing well. Per the patient's nurse since the patient has been the hospital she has not had any further seizure-like activity. Patient stated that the last 1-2 weeks she had multiple surgeries for her nephrolithiasis and since then her she feels her left foot hasn't been "moving". She denies of any lower back pain or bowel incontinence. She has a Mccullough catheter. Denies of any weakness in the upper extremities, difficulty getting her words out, difficulty swallowing, visual disturbance, any numbness or tingling of upper or lower extremities. Per the ED note it states that the patient is a wheelchair-bound but according to patient she was walk-in fine out prior to 1-2 weeks ago but feels her legs the are not able to handle the weight 1 walk-in after these 2 recurrent surgeries. Patient's home medication consist of Lipitor 10 mg, Remeron 7.5 mg daily at bedtime, Bactrim. Some of the workup in the hospital consisted of: Initial vital signs: Blood pressure of 104/62, heart rate of 76, respiratory of 16, temperature of 98.2 Fahrenheit oral and pulse ox of 99% room air. Patient has been afebrile since being in the hospital. CT of the head is reported as no acute intracranial hemorrhage, midline shift or mass effect. No acute finding. Nobody reported that is mentioned the patient has scattered foci of low attenuation are seen in the bilateral temporal lobe and right frontal lobe and bilateral basal ganglionic likely representing remote lacunar infarct. Focal calcification in the right basal ganglia likely chronic Initial white blood cell is 6.7 and the hemoglobin is 8.3 which is low. Otherwise is seems unremarkable. Initial serum glucose is 89 was is considered within normal limits. The sodium is 138, calcium is 8.7, magnesium 2.3, AST 23 and ALT of 20 which are all within normal limits. Patient at creatinine is 1.54. Urinalysis is cloudy, nitrate was negative, leukocyte esterase was large, urine white blood cells 137, which seems suggestive of urinary tract infection. EKG is reported as normal sinus rhythm. Normal EKG. Venous duplex of the left leg is reported as there is evidence of acute and chronic deep venous thrombosis in the left popliteal vein. Review of Systems Review of system: The 12 point system was reviewed and apparent positive and negative per HPI. Past Medical History Past Medical History: Cancer, Dementia Additional Past Medical History / Comment(s): breast cancer 1991, heart palpitations, skin cancer, colon cancer 2006 History of Any Multi-Drug Resistant Organisms: None Reported Past Surgical History: Breast Surgery, Hysterectomy Additional Past Surgical History / Comment(s): ulcer surgery, left finger relase surgery Past Anesthesia/Blood Transfusion Reactions: No Reported Reaction Past Psychological History: Depression Smoking Status: Former smoker Past Alcohol Use History: None Reported Past Drug Use History: None Reported - Past Family History Father Additional Family Medical History / Comment(s): Father in his 50's due to heart disease. Mother Family Medical History: Cancer Medications and Allergies Home Medications Medication Instructions Recorded Confirmed Type Multivitamins, Thera [Multivitamin 1 tab PO DAILY@0800 08/18/20 04/19/21 History (formulary)] Atorvastatin [Lipitor] 10 mg PO HS 04/02/21 04/19/21 History Mirtazapine [Remeron] 7.5 mg PO HS 04/02/21 04/19/21 History Acetaminophen Tab [Tylenol] 650 mg PO Q6H PRN 04/19/21 04/19/21 History Sulfamethox-Tmp 800-160Mg [Bactrim 1 tab PO BID@0800,199904/19/21 04/19/21 History DS 800-160 mg] Allergies Allergy/AdvReac Type Severity Reaction Status Date / Time Penicillins Allergy Rash/Hives Verified 04/19/21 15:03 Physical Examination - Vital Signs Vital Signs: Vital Signs Temp Pulse Pulse Resp BP BP Pulse Ox 04/20/21 07:07 97.7 F 71 18 108/62 98 04/20/21 01:26 98.2 F 75 16 99/57 100 04/19/21 19:40 98.3 F 84 16 106/64 100 04/19/21 17:52 99.3 F 97 18 118/65 99 04/19/21 17:17 98.6 F 74 16 106/69 99 04/19/21 15:26 98 F 74 16 121/63 98 04/19/21 14:20 71 16 119/62 100 04/19/21 12:42 98.2 F 76 16 104/62 99 Intake and Output 04/19/21 04/20/21 04/20/21 22:59 06:59 14:59 Output Total 875 Balance -875 Output: Urine 875 Other: Voiding Method External Catheter # Voids 1 # Bowel Movements 0 Weight 46.72 kg GENERAL: The patient is lying in bed and is not in acute distress. CHEST: The heart rate is regular rate rhythm. No murmurs to auscultation. No carotid bruit bilaterally. LUNG: Clear to auscultation bilaterally no wheezing noted throughout. Not labored breathing. ABDOMEN/GI: Bowel sounds present in all 4 quadrants. No tenderness to palpation throughout. NEUROLOGICAL: Higher mental function: The patient is awake, alert, oriented to self. She stated the year is 2019 but correctly stated the current month. She stated she was in the hospital and with options she stated it was [facility]. She correctly named the current [place] president with option. Patient is following commands. No aphasia and no neglect. Cranial nerves: The pupils are round, equal and reactive to light and accommodation. Visual garvey are full to confrontation throughout. Extraocular movement is intact no nystagmus is noted. Facial sensation is normal to touch throughout. The facial strength is normal throughout. Hearing is normal bilaterally to hand rub. Tongue is midline and moved [id number] without any difficulty. No dysarthria is noted. Shoulder shrug is normal bilaterally. Motor: Gait is defered. The strength is left foot dorsiflexion is 3-4, o therwise 5-/5 over bilateral lower extremities. Otherwise 5 over 5 throughout. Normal tone and bulk. Cerebellum: Normal finger to nose bilaterally. Sensation: Sensation is normal to touch throughout. Reflexes (right/left): 3+ over bilateral patellar and brachioradialis. Otherwise 2+ throughout. Plantars: Upgoing over the left at baseline. Otherwise mute over the right. Results - Laboratory Findings CBC and BMP: 04/20/21 14:40 04/20/21 14:40 Abnormal Lab Findings: Abnormal Labs 04/19/21 04/19/21 04/19/21 13:21 13:21 13:21 RBC 2.87 L Hgb 8.3 L Hct 26.3 L Lymphocytes # 0.5 L APTT 21.8 L Chloride BUN Creatinine Total Protein Albumin Urine Appearance Cloudy H Urine Protein 1+ H Urine Blood Large H Ur Leukocyte Esterase Large H Urine RBC >182 H Urine WBC 137 H Urine Mucus Rare H 04/19/21 13:21 RBC Hgb Hct Lymphocytes # APTT Chloride 110 H BUN 28 H Creatinine 1.54 H Total Protein 5.3 L Albumin 2.8 L Urine Appearance Urine Protein Urine Blood Ur Leukocyte Esterase Urine RBC Urine WBC Urine Mucus Assessment and Plan Assessment: New onset seizure. Unknown cause. 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 On the CT reported on bilateral temporal lobe and right frontal lobe and bilateral basal ganglionic. Having lower extremity weakness for the past 1-2 weeks since having recurrent surgies of nephroliasis (described as feels her legs can't support her and mostly left foot). Possibly left foot drop vs possibly in addition deconditioning since surgery. Acute on chronic kidney insufficiency Acute on chronic deep vein thrombosis in the left popliteal vein History of right breast cancer 1991 History of colon cancer 2006 s/p partial resection Plan: I ordered a routine EEG. I started the patient on Keppra 500 mg 1 tablet twice a day. I ordered MRI of the brain . I also ordered MRI of the lumbar spine. Continue a seizure precaution and seizure pads. On cardiac monitoring Continue Lipitor 10 mg daily at bedtime and recommend aspirin 81 mg for secondary stroke prophylaxis (especially with history of stroke) and did not start since not sure if patient will be started on anticoagulation for DVT and to avoid increased risk of bleed. Possibly consider EMG with NCS as outpatient if MRI does not explain patient left foot weakness. Consulted physical therapy and occupation therapy We'll defer the rest of the medical management to the primary team Patient was notified that per [place] DMV, she cannot drive for 6 month until seizure-free, to avoid heights, avoid swimming unassisted and and using heavy machinery. Upon discharge the patient needs to follow up with a neurologist as an outpat ient within 1-2 weeks Thank you for the consultation. Ousmane Barreto MD Neuro-Hospitalist. Time with Patient: Greater than 30
[2021-04-20 11:27] VITALS: BMI 16.6
--- NOTE | 2021-04-20 12:31 | MR ---
EXAMINATION TYPE: MR lumbar spine wo con DATE OF EXAM: 04/20/2021 COMPARISON: NONE HISTORY: Shaking of arms and legs, left foot weakness, seizure, dementia TECHNIQUE: Multiplanar, multisequence imaging of the lumbar spine is performed without IV contrast. FINDINGS: Sagittal images of the lumbar spine show vertebral body heights to appear satisfactory. Sub tle grade 1 retrolisthesis L4 on L5. Multilevel disc desiccation. There is mild disc space narrowing L3-L4 and L5-S1 levels. The conus medullaris is normal in position and signal ending at superior L2 l evel. The bone marrow signal intensity is within normal limits. Small hemangioma posterior superior L2 level sagittal image 8. Axial images at T12-L1 level appear within normal limits. Axial images at L1-L2 level shows mild facet arthropathy bilaterally. Axial images at L2-L3 level show mild to moderate facet arthropathy and ligamentum flavum hypertrophy . Axial images at L3-L4 level [id number] facet arthropathy ligamentum flavum hypertrophy passing posterior lateral thecal sac on axial image 13. There is mild/moderate broad-based posterior disc pro trusion mildly effacing anterior thecal sac. Patent bilateral neural foramina. Axial images at L4-L5 level show mild to moderate facet arthropathy and ligamentum flavum hypertrophy . There is mild/moderate broad disc bulge mildly effaces the anterior thecal sac. There is mild bilat eral anterior inferior neural foraminal narrowing. Axial images at L5-S1 level mild facet arthropathy bilaterally. Tiny central disc protrusion but the spinal canal is preserved. Patent bilateral neural foramina. Paraspinal muscle bulk is maintained. There are thin-walled T2 hyperintense lesion suspected simple t hin-walled cysts bilaterally. In addition there is left-sided hydronephrosis identified. Most recent abdominal x-ray shows left-sided ureter stent am percutaneous drainage cystostomy stent. Correlate cl inically. IMPRESSION: Multilevel mild to moderate degenerative changes in the lumbar spine as detailed above. N o large disc herniation evident.
[2021-04-20] MEDS: levETIRAcetam 500 MG TAB PO SCH ×2 (12:33→20:16)
[2021-04-20] MEDS: SODIUM CHLORIDE 0.9% 1,000 ML IV SCH ×2 (12:33→20:19)
--- NOTE | 2021-04-20 12:59 | P.GSCN ---
History of Present Illness Consult date: 04/20/21 Reason for Consult: Left popliteal DVT History of present illness: Patient is an 85-year-old female who recently was admitted to the hospital for workup regarding possible seizure disorder. Patient was not physically seen as she was undergoing multiple testing procedures outside her room however did speak to the patient's daughter. The daughter relates that on March 08 the patient had been experiencing multiple falls and was admitted to the rehab program. She has a history of urinary tract infection with urosepsis. She was found to be suffering from renal lithiasis and has undergone at least 2 procedures to L remove the kidney stones. She has undergone at least 2 procedures in this regard first on April 08 and the second on April 15. During this hospital stay the patient did undergo venous duplex which demonstrates deep venous thrombosis colitis to the popliteal segment on the left. The patient's daughter indicates this is a first venous thrombotic event experienced by her mother. Past Medical History Past Medical History: Cancer, Dementia Additional Past Medical History / Comment(s): breast cancer 1991, heart palpitations, skin cancer, colon cancer 2006 History of Any Multi-Drug Resistant Organisms: None Reported Past Surgical History: Breast Surgery, Hysterectomy Additional Past Surgical History / Comment(s): ulcer surgery, left finger relase surgery Past Anesthesia/Blood Transfusion Reactions: No Reported Reaction Past Psychological History: Depression Smoking Status: Former smoker Past Alcohol Use History: None Reported Past Drug Use History: None Reported - Past Family History Father Additional Family Medical History / Comment(s): Father in his 50's due to heart disease. Mother Family Medical History: Cancer Medications and Allergies Home Medications Medication Instructions Recorded Confirmed Type Multivitamins, Thera [Multivitamin 1 tab PO DAILY@0800 08/18/20 04/19/21 History (formulary)] Atorvastatin [Lipitor] 10 mg PO HS 04/02/21 04/19/21 History Mirtazapine [Remeron] 7.5 mg PO HS 04/02/21 04/19/21 History Acetaminophen Tab [Tylenol] 650 mg PO Q6H PRN 04/19/21 04/19/21 History Sulfamethox-Tmp 800-160Mg [Bactrim 1 tab PO BID@0800,2000 04/19/21 04/19/21 History DS 800-160 mg] Allergies Allergy/AdvReac Type Severity Reaction Status Date / Time Penicillins Allergy Rash/Hives Verified 04/19/21 15:03 Surgical - Exam Osteopathic Statement: *. No significant issues noted on an osteopathic structural exam other than those noted in the History and Physical/Consult. Vital Signs Temp Pulse Resp BP Pulse Ox 98.2 F 76 16 104/62 99 04/19/21 12:42 04/19/21 12:42 04/19/21 12:42 04/19/21 12:42 04/19/21 12:42 Results - Labs 04/19/21 13:21 04/19/21 13:21 Abnormal Lab Results - Last 24 Hours (Table) 04/19/21 04/19/21 04/19/21 Range/Units 13:21 13:21 13:21 RBC 2.87 L (3.80-5.40) m/uL Hgb 8.3 L (11.4-16.0) gm/dL Hct 26.3 L (34.0-46.0) % Lymphocytes # 0.5 L (1.0-4.8) k/uL APTT 21.8 L (22.0-30.0) sec Chloride (98-107) mmol/L BUN (7-17) mg/dL Creatinine (0.52-1.04) mg/dL Total Protein (6.3-8.2) g/dL Albumin (3.5-5.0) g/dL Urine Appearance Cloudy H (Clear) Urine Protein 1+ H (Negative) Urine Blood Large H (Negative) Ur Leukocyte Esterase Large H (Negative) Urine RBC >182 H (0-5) /hpf Urine WBC 137 H (0-5) /hpf Urine Mucus Rare H (None) /hpf 04/19/21 Range/Units 13:21 RBC (3.80-5.40) m/uL Hgb (11.4-16.0) gm/dL Hct (34.0-46.0) % Lymphocytes # (1.0-4.8) k/uL APTT (22.0-30.0) sec Chloride 110 H (98-107) mmol/L BUN 28 H (7-17) mg/dL Creatinine 1.54 H (0.52-1.04) mg/dL Total Protein 5.3 L (6.3-8.2) g/dL Albumin 2.8 L (3.5-5.0) g/dL Urine Appearance (Clear) Urine Protein (Negative) Urine Blood (Negative) Ur Leukocyte Esterase (Negative) Urine RBC (0-5) /hpf Urine WBC (0-5) /hpf Urine Mucus (None) /hpf Diabetes panel 04/19/21 Range/Units 13:21 Sodium 138 (137-145) mmol/L Potassium 4.7 (3.5-5.1) mmol/L Chloride 110 H (98-107) mmol/L Carbon Dioxide 22 (22-30) mmol/L BUN 28 H (7-17) mg/dL Creatinine 1.54 H (0.52-1.04) mg/dL Glucose 89 (74-99) mg/dL Calcium 8.7 (8.4-10.2) mg/dL AST 23 (14-36) U/L ALT 20 (4-34) U/L Alkaline Phosphatase 70 (38-126) U/L Total Protein 5.3 L (6.3-8.2) g/dL Albumin 2.8 L (3.5-5.0) g/dL Calcium panel 04/19/21 Range/Units 13:21 Calcium 8.7 (8.4-10.2) mg/dL Albumin 2.8 L (3.5-5.0) g/dL Pituitary panel 04/19/21 Range/Units 13:21 Sodium 138 (137-145) mmol/L Potassium 4.7 (3.5-5.1) mmol/L Chloride 110 H (98-107) mmol/L Carbon Dioxide 22 (22-30) mmol/L BUN 28 H (7-17) mg/dL Creatinine 1.54 H (0.52-1.04) mg/dL Glucose 89 (74-99) mg/dL Calcium 8.7 (8.4-10.2) mg/dL Adrenal panel 04/19/21 Range/Units 13:21 Sodium 138 (137-145) mmol/L Potassium 4.7 (3.5-5.1) mmol/L Chloride 110 H (98-107) mmol/L Carbon Dioxide 22 (22-30) mmol/L BUN 28 H (7-17) mg/dL Creatinine 1.54 H (0.52-1.04) mg/dL Glucose 89 (74-99) mg/dL Calcium 8.7 (8.4-10.2) mg/dL Total Bilirubin 0.3 (0.2-1.3) mg/dL AST 23 (14-36) U/L ALT 20 (4-34) U/L Alkaline Phosphatase 70 (38-126) U/L Total Protein 5.3 L (6.3-8.2) g/dL Albumin 2.8 L (3.5-5.0) g/dL Assessment and Plan Assessment: Assessment: #1: Deep venous thrombosis left popliteal vein Plan: Currently is seen no contraindication to the use of oral anticoagulants. However should the patient need to undergo further surgical intervention a IVC filter can be placed should anticoagulation need to be discontinued for an extended time frame. We'll follow the patient along with you during her hospital stay. Time with Patient: Less than 30
--- NOTE | 2021-04-20 13:08 | MR ---
EXAMINATION TYPE: MR brain wo con DATE OF EXAM: 04/20/2021 COMPARISON: CT brain from yesterday. HISTORY: Shaking of arms and legs, left foot weakness, seizure, dementia TECHNIQUE: Multiplanar, multisequence imaging of the brain and brainstem is performed without IV cont rast. FINDINGS: Diffusion weighted images demonstrate no evidence of a recent infarct or other diffusion abnormality. There is moderate ventricular and sulcal prominence. Scattered foci of T2 intensity seen throughout t he superficial and deep white matter with more confluent appearance at the periventricular level. Midline structures demonstrate normal morphology. The craniocervical junction appears within normal limits. Normal vascular flow voids are present. Mild mucosal thickening involving bilateral maxillary sinuses. IMPRESSION: No MRI evidence for recent infarct. Moderate diffuse cerebral atrophy and mild to moderat e chronic small vessel ischemic change. Mild chronic maxillary sinus disease.
[2021-04-20 15:14] LABS: Basophils % (A) 1 %; Eosinophils # (A) 0.1 k/uL (0-0.7); Eosinophils % (A) 2 %; HCT 27.7 % (34.0-46.0); HGB 8.7 gm/dL (11.4-16.0); Hypochromasia Moderate; Lymphocytes # (A) 0.8 k/uL (1.0-4.8); Lymphocytes % (A) 16 %; MCH 29.3 pg (25.0-35.0); MCHC 31.2 g/dL (31.0-37.0); MCV 94.1 fL (80.0-100.0); Mean Platelet Volume 7.6; Monocytes # (A) 0.2 k/uL (0-1.0); Monocytes % (A) 5 %; Neutrophils # (A) 3.5 k/uL (1.3-7.7); Neutrophils % (A) 75 %; Platelet Count 393 k/uL (150-450); RBC 2.95 m/uL (3.80-5.40); RDW 14.3 % (11.5-15.5); WBC 4.7 k/uL (3.8-10.6)
[2021-04-20 15:22] LABS: ALT 18 U/L (4-34); AST 24 U/L (14-36); African American GFR (CKD) 43 (>60 ml/min/1.73 sqM); Albumin 2.7 g/dL (3.5-5.0); Albumin/Globulin Ratio 1.1; Alkaline Phosphatase 71 U/L (38-126); Anion Gap 4 mmol/L; Blood Urea Nitrogen 24 mg/dL (7-17); Carbon Dioxide 23 mmol/L (22-30); Chloride 112 mmol/L (98-107); Globulin 2.5 g/dL; Glucose 149 mg/dL (74-99); Non-African American GFR(CKD) 37 (>60 ml/min/1.73 sqM); Sodium 139 mmol/L (137-145); Total Bilirubin 0.3 mg/dL (0.2-1.3); Total Protein 5.2 g/dL (6.3-8.2)
[2021-04-20] MEDS: APIXABAN 2.5 MG TABLET PO SCH ×2 (15:34→21:07)
--- NOTE | 2021-04-20 15:34 | EEG ---
ELECTROENCEPHALOGRAM REPORT DATE OF SERVICE: 04/20/2021. CLINICAL HISTORY: This is an 85-year-old woman who presented to the ED for seizure-like activity. This video EEG is obtained to evaluate for seizure and epileptiform activity. RELEVANT MEDICATION: Keppra. EEG TYPE: A routine 21 channel EEG is performed with video using the 10/20 electrode placement system. DESCRIPTION: Wakefulness is obtained. During wakefulness, there is a positive dominant rhythm of nzx-by-citmnvdy voltage that is well modulated of 7 to 7.5 hertz. There was is physiological sleep architecture seen. There is no focal slowing seen. Interictal and ictal are none. ACTIVATION PROCEDURES: Photic stimulation did not evoke a posterior driving response. There is no abnormality during photic stimulation. Hyperventilation is not performed. CLINICAL INTERPRETATION: This is an abnormal routine EEG. The mild background slowing is suggestive of mild encephalopathy. There are no focal slowing, epileptiform discharge or seizure on this study. Clinical correlation is recommended. KAREN / DORINAN: [id number] / MTDD
[2021-04-20] MEDS: MIRTAZAPINE 15 MG TAB PO SCH (20:15)
[2021-04-20] MEDS: ATORVASTATIN 10 MG TAB PO SCH (20:15)
--- NOTE | 2021-04-20 22:24 | P.GSCN ---
History of Present Illness Consult date: 04/20/21 Reason for Consult: right renal stone History of present illness: This is an 85 yo female with hx of right sided renal stone she is S/P left PCNL by Dr Gerard on 04/08, with second look on 04/15. She is admitted to the hospital for worsening weakness and possible seizure She denies any flank pain, N/V or fevers. She is been complaining of worsening urinary incontinence which is worse than her baseline. She denies any Dysuria or Gross Hematuria. On presentation her UA was concerning for possible UTI. Review of Systems - Constitutional Reports weakness, Denies fever, Denies weight loss - EENT Ears, nose, mouth and throat: Denies dysphagia - Cardiovascular Denies chest pain, Denies shortness of breath - Respiratory Denies cough, Denies 7 - Gastrointestinal Reports as per HPI - Genitourinary Genitourinary: Reports mixed incontinence, Denies dysuria, Denies flank pain, Denies hematuria - Integumentary Denies rash, Denies unusual bruising - Neurological Reports seizures Past Medical History Past Medical History: Cancer, Dementia Additional Past Medical History / Comment(s): breast cancer 1991, heart palpitations, skin cancer, colon cancer 2006 History of Any Multi-Drug Resistant Organisms: None Reported Past Surgical History: Breast Surgery, Hysterectomy Additional Past Surgical History / Comment(s): ulcer surgery, left finger relase surgery Past Anesthesia/Blood Transfusion Reactions: No Reported Reaction Past Psychological History: Depression Smoking Status: Former smoker Past Alcohol Use History: None Reported Past Drug Use History: None Reported - Past Family History Father Additional Family Medical History / Comment(s): Father in his 50's due to heart disease. Mother Family Medical History: Cancer Medications and Allergies Home Medications Medication Instructions Recorded Confirmed Type Multivitamins, Thera [Multivitamin 1 tab PO DAILY@0800 08/18/20 04/19/21 History (formulary)] Atorvastatin [Lipitor] 10 mg PO HS 04/02/21 04/19/21 History Mirtazapine [Remeron] 7.5 mg PO HS 04/02/21 04/19/21 History Acetaminophen Tab [Tylenol] 650 mg PO Q6H PRN 04/19/21 04/19/21 History Sulfamethox-Tmp 800-160Mg [Bactrim 1 tab PO BID@0800,199904/19/21 04/19/21 History DS 800-160 mg] Allergies Allergy/AdvReac Type Severity Reaction Status Date / Time Penicillins Allergy Rash/Hives Verified 04/19/21 15:03 Surgical - Exam Vital Signs Temp Pulse Resp BP Pulse Ox 98.2 F 76 16 104/62 99 04/19/21 12:42 04/19/21 12:42 04/19/21 12:42 04/19/21 12:42 04/19/21 12:42 - General well developed, well nourished, no distress, no pain - Eyes PERRL, normal ocular movement - Respiratory normal expansion, normal respiratory effort - Abdomen Abdomen: soft, non tender - Psychiatric oriented to time, oriented to person Results - Labs 04/20/21 14:40 04/20/21 14:40 Abnormal Lab Results - Last 24 Hours (Table) 04/20/21 04/20/21 Range/Units 14:40 14:40 RBC 2.95 L (3.80-5.40) m/uL Hgb 8.7 L (11.4-16.0) gm/dL Hct 27.7 L (34.0-46.0) % Lymphocytes # 0.8 L (1.0-4.8) k/uL Chloride 112 H (98-107) mmol/L BUN 24 H (7-17) mg/dL Creatinine 1.31 H (0.52-1.04) mg/dL Glucose 149 H (74-99) mg/dL Total Protein 5.2 L (6.3-8.2) g/dL Albumin 2.7 L (3.5-5.0) g/dL Microbiology - Last 24 Hours (Table) 04/20/21 12:00 Urine Culture - Preliminary Urine,Voided Diabetes panel 04/20/21 Range/Units 14:40 Sodium 139 (137-145) mmol/L Potassium 5.0 (3.5-5.1) mmol/L Chloride 112 H (98-107) mmol/L Carbon Dioxide 23 (22-30) mmol/L BUN 24 H (7-17) mg/dL Creatinine 1.31 H (0.52-1.04) mg/dL Glucose 149 H (74-99) mg/dL Calcium 9.0 (8.4-10.2) mg/dL AST 24 (14-36) U/L ALT 18 (4-34) U/L Alkaline Phosphatase 71 (38-126) U/L Total Protein 5.2 L (6.3-8.2) g/dL Albumin 2.7 L (3.5-5.0) g/dL Calcium panel 04/20/21 Range/Units 14:40 Calcium 9.0 (8.4-10.2) mg/dL Albumin 2.7 L (3.5-5.0) g/dL Pituitary panel 04/20/21 Range/Units 14:40 Sodium 139 (137-145) mmol/L Potassium 5.0 (3.5-5.1) mmol/L Chloride 112 H (98-107) mmol/L Carbon Dioxide 23 (22-30) mmol/L BUN 24 H (7-17) mg/dL Creatinine 1.31 H (0.52-1.04) mg/dL Glucose 149 H (74-99) mg/dL Calcium 9.0 (8.4-10.2) mg/dL Adrenal panel 04/20/21 Range/Units 14:40 Sodium 139 (137-145) mmol/L Potassium 5.0 (3.5-5.1) mmol/L Chloride 112 H (98-107) mmol/L Carbon Dioxide 23 (22-30) mmol/L BUN 24 H (7-17) mg/dL Creatinine 1.31 H (0.52-1.04) mg/dL Glucose 149 H (74-99) mg/dL Calcium 9.0 (8.4-10.2) mg/dL Total Bilirubin 0.3 (0.2-1.3) mg/dL AST 24 (14-36) U/L ALT 18 (4-34) U/L Alkaline Phosphatase 71 (38-126) U/L Total Protein 5.2 L (6.3-8.2) g/dL Albumin 2.7 L (3.5-5.0) g/dL Assessment and Plan Assessment: 85 yo female with recent Left PCNL by Dr Gerard on 04/08,04/15. She is admitted to hospital with possible Seizure. She exhibits no signs of sepsis, but her UA is concerning for UTI, -F/U on urine culture Recommed to Continue Ceftrixone until culture is finalized
--- NOTE | 2021-04-21 00:18 | P.PN ---
Subjective Progress Note Date: 04/20/21 Principal diagnosis: Seziures, Acute DVT Ms. Doan is an 85-year-old female with past medical history of breast cancer in 1991, colon cancer in 2006, cognitive impairment/dementia, major depressive disorder brought in by her for evaluation of seizures. Patient's daughter at the bedside and mentions that earlier this morning she noticed that her mother was shaking her right arm and left leg and became less responsive and this episode lasted for few minutes and later on she recovered. There was another episode when the patient was in a wheelchair, and her eyes were rolled and again she noticed that the patient was shaking her hands and legs, after this the pa tient was confused for a few minutes. Currently the patient is lying comfortably in bed appears to be in no acute distress. On questioning her, she does not remember much about the episode that happened. She is denies having any headaches, blurring of vision or weakness of her extremities. She denies having any change in her speech. Patient denied having any fevers chills or rigors. No chest pain or palpitations. No cough or difficulty breathing. No abdominal pain nausea vomiting or diarrhea. No dysuria or hematuria. Patient never had a history of seizure disorder. She was treated for breast cancer and has been in remission since 1991. And she also has history of colon cancer in 2006. Patient was recently admitted to the hospital for large staghorn calculi in the left kidney. She had left percutaneous nephro lithotomy with laser lithotripsy by Dr. Solomon. And her daughter mentions that since being discharged from the hospital patient did not regain her strength back and could not ambulate by herself. In the ER at the time of admission patient's vitals temperature 98.2, heart rate 76, respiratory 16, blood pressure 104/62 saturating at 99% on room air. Patient had chest x-ray done in the ED showing no acute cardiopulmonary process CT of the head showing no acute intracranial hemorrhage. 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 On reviewing her labs white count of 6. 7, hemoglobin 8.3, platelets 357. Sodium 138, potassium 4.7, chloride 110, bicarb 22, BUN 28, creatinine 1.54. Urine analysis is positive for large leukocyte esterase large blood and negative for nitrites. On 04/20/2021 -patient is seen and examined at the bedside. Patient denied having any more seizures since the time of admission. She denies having any fevers chills or rigors. No chest pain or palpitations. No cough or difficulty in breathing. No abdominal pain nausea vomiting or diarrhea. No dysuria or hematuria. On reviewing the patient's vitals temperature of 97.7, heart rate 71, respiratory rate 18, blood pressure 108 x 62, saturating at 98% on room air. On reviewing the patient's labs from this morning white count of 4.7 hemoglobin 8.7 platelets 393. Sodium 139, potassium 5, chloride 112, bicarb 23, BUN 24, creatinine 1.31. Albumin 2.7. Patient's medications have been reviewed she is on Tylenol, Eliquis, Lipitor, ceftriaxone, Keppra, Remeron, multivitamins Objective - Vital Signs Vital signs: Vital Signs Temp 97.7 F 04/20/21 07:07 Pulse 71 04/20/21 07:07 Resp 18 04/20/21 08:00 BP 108/62 04/20/21 07:07 Pulse Ox 98 04/20/21 07:07 Intake & Output 04/19/21 04/20/21 04/20/21 18:59 06:59 18:59 Output Total 875 Balance -875 Weight 46.72 kg 46.72 kg Output: Urine 875 Other: Voiding Method External Catheter External Catheter # Voids 1 # Bowel Movements 0 - Exam PHYSICAL EXAMINATION: GENERAL: Comfortably sitting up in the bed appears to be no acute distress. HEENT: Pupils are round and equally reacting to light. EOMI. No scleral icterus. No conjunctival pallor. CARDIOVASCULAR: S1 and S2 present. No murmurs, rubs, or gallops. PULMONARY: Bilateral breath sounds positive. No wheeze or crackles. CHEST - Right breast implant ABDOMEN: Soft,Non -tender, normal bowel sounds. No guarding or rigidity. MUSCULOSKELETAL: No joint swelling or deformity. EXTREMITIES: Left Lower extremity bigger in girth compared to right NEUROLOGICAL: Gross neurological examination did not reveal any focal deficits. SKIN:No rash - Labs CBC & Chem 7: 04/20/21 14:40 04/20/21 14:40 Labs: Abnormal Lab Results - Last 24 Hours (Table) 04/19/21 04/19/21 Range/Units 13:21 13:21 APTT 21.8 L (22.0-30.0) sec Urine Appearance Cloudy H (Clear) Urine Protein 1+ H (Negative) Urine Blood Large H (Negative) Ur Leukocyte Esterase Large H (Negative) Urine RBC >182 H (0-5) /hpf Urine WBC 137 H (0-5) /hpf Urine Mucus Rare H (None) /hpf Assessment and Plan Assessment: ASSESSMENT New onset seizures Acute left popliteal vein DVT Chronic anemia CKD stage III Possible UTI History of breast cancer in 1991 status post mastectomy History of colon cancer in 2006 History of major depressive disorder Former smoker Severe protein calorie malnutrition PLAN: Patient does not have history of seizure disorder, this is the first episode ever in her life so new onset seizure. CAT scan of the brain has been negative. Neurology has been consulted , contemplating EEG. Patient recently had urological procedure done at discharge from the hospital and since then was bedbound, found to have acute DVT in the left popliteal vein. Patient has history of CKD and anemia, vascular surgery consulted for recommendations regarding anticoagulation- they started her on Eliquis 2.5 mg BID . As the pat ient recently had urological procedure, urology has been consulted. Patient urinalysis for possible UTI so we will continue with ceftriaxone. Further recommendations to follow depending on the progress of patient.
[2021-04-21] MEDS: APIXABAN 2.5 MG TABLET PO SCH ×2 (08:44→22:07)
[2021-04-21] MEDS: MULTIVITAMINS, THERA 1 EACH TAB PO SCH (08:44)
[2021-04-21] MEDS: levETIRAcetam 500 MG TAB PO SCH ×2 (08:45→22:07)
[2021-04-21 09:18] LABS: Basophils # (A) 0.04 X 10*3/uL (0.00-0.10); Basophils % (A) 0.8 %; Eosinophils # (A) 0.14 X 10*3/uL (0.04-0.35); Eosinophils % (A) 2.7 %; HCT 26.7 % (37.2-46.3); HGB 7.9 g/dL (12.0-15.0); Lymphocytes # (A) 0.86 X 10*3/uL (0.90-5.00); Lymphocytes % (A) 16.5 %; MCH 28.6 pg (27.0-32.0); MCHC 29.6 g/dL (32.0-37.0); MCV 96.7 fL (80.0-97.0); Mean Platelet Volume 10.1 fL (9.5-12.2); Monocytes # (A) 0.51 X 10*3/uL (0.20-1.00); Monocytes % (A) 9.8 %; Neutrophils # (A) 3.64 X 10*3/uL (1.80-7.70); Platelet Count 359 X 10*3/uL (140-440); RBC 2.76 X 10*6/uL (4.10-5.20); RDW 14.4 % (11.5-14.5)
[2021-04-21 09:29] LABS: African American GFR (CKD) 39.3 (60.0-200.0); Anion Gap 8.6 mmol/L (4.00-12.00); Calcium 8.6 mg/dL (8.7-10.3); Carbon Dioxide 21.4 mmol/L (21.6-31.8); Non-African American GFR(CKD) 33.9 (60.0-200.0); Potassium 5.6 mmol/L (3.5-5.5)
[2021-04-21] MEDS ORDERED: SODIUM POLYSTYRENE SULFONATE 15 GM/60 ML BOTTLE PO STA (11:40)
--- NOTE | 2021-04-21 13:26 | P.PN ---
Subjective Progress Note Date: 04/21/21 Principal diagnosis: Left lower extremity DVT Patient is seen and examined sitting up at the bedside chair. She is without any complaints. No acute changes through the night. Patient was started on Eliquis 2.5 mg twice a day. Objective - Vital Signs Vital signs: Vital Signs Temp 98.5 F 04/21/21 08:16 Pulse 70 04/21/21 08:16 Resp 13 04/21/21 08:16 BP 115/52 04/21/21 08:16 Pulse Ox 99 04/21/21 08:16 Intake & Output 04/20/21 04/21/21 04/21/21 18:59 06:59 18:59 Output Total 650 Balance -650 Weight 46.72 kg Output: Urine 650 Other: Voiding Method External Catheter External Catheter # Voids 3 - Exam General appearance: The patient is alert, oriented, in no acute distress. HET: Head is normocephalic and atraumatic. Neck: Supple without lymphadenopathy. Trachea midline. Extremities: Normal skin color and turgor. No cyanosis, rash, ulceration, clubbing, or edema. Radial and pedal pulses are 2/4 bilaterally. Neurological: No focal deficits. - Labs CBC & Chem 7: 04/21/21 05:36 04/21/21 05:36 Labs: Abnormal Lab Results - Last 24 Hours (Table) 04/20/21 04/20/21 04/21/21 Range/Units 14:40 14:40 05:36 RBC 2.95 L 2.76 L (3.80-5.40) m/uL Hgb 8.7 L 7.9 L (11.4-16.0) gm/dL Hct 27.7 L 26.7 L (34.0-46.0) % MCHC 29.6 L (32.0-37.0) g/dL Lymphocytes # 0.8 L 0.86 L (1.0-4.8) k/uL Potassium (3.5-5.5) mmol/L Chloride 112 H (98-107) mmol/L Carbon Dioxide (21.6-31.8) mmol/L BUN 24 H (7-17) mg/dL Creatinine 1.31 H (0.52-1.04) mg/dL Est GFR (CKD-EPI)AfAm (60.0-200.0) Est GFR (CKD-EPI)NonAf (60.0-200.0) Glucose 149 H (74-99) mg/dL Calcium (8.7-10.3) mg/dL Total Protein 5.2 L (6.3-8.2) g/dL Albumin 2.7 L (3.5-5.0) g/dL 04/21/21 Range/Units 05:36 RBC (3.80-5.40) m/uL Hgb (11.4-16.0) gm/dL Hct (34.0-46.0) % MCHC (32.0-37.0) g/dL Lymphocytes # (1.0-4.8) k/uL Potassium 5.6 H (3.5-5.5) mmol/L Chloride 114 H (98-107) mmol/L Carbon Dioxide 21.4 L (21.6-31.8) mmol/L BUN 28.0 H (7-17) mg/dL Creatinine (0.52-1.04) mg/dL Est GFR (CKD-EPI)AfAm 39.3 L (60.0-200.0) Est GFR (CKD-EPI)NonAf 33.9 L (60.0-200.0) Glucose 116 H (74-99) mg/dL Calcium 8.6 L (8.7-10.3) mg/dL Total Protein (6.3-8.2) g/dL Albumin (3.5-5.0) g/dL Microbiology - Last 24 Hours (Table) 04/20/21 12:00 Urine Culture - Preliminary Urine,Voided Assessment and Plan Assessment: 1. Deep vein thrombosis left popliteal vein Plan: 1. Continue oral anticoagulation 2. Patient may be discharged from a vascular surgical standpoint 3. Patient to follow-up in outpatient setting with vascular surgery The impression and plan of care has been dictated as directed. I performed a history and examination of this patient, discussed the same with the dictator. I agree with the dictator's note ,documented as a scribe. Any additional findings or plans will be noted.
[2021-04-21] MEDS: SENNOSIDES 8.6 MG TAB PO SCH ×2 (14:18→22:10)
[2021-04-21] MEDS: MIRTAZAPINE 15 MG TAB PO SCH (22:06)
[2021-04-21] MEDS: ATORVASTATIN 10 MG TAB PO SCH (22:07)
--- NOTE | 2021-04-22 01:04 | P.PN ---
Subjective Progress Note Date: 04/21/21 Principal diagnosis: Seziures, Acute DVT Ms. Doan is an 85-year-old female with past medical history of breast cancer in 1991, colon cancer in 2006, cognitive impairment/dementia, major depressive disorder brought in by her for evaluation of seizures. Patient's daughter at the bedside and mentions that earlier this morning she noticed that her mother was shaking her right arm and left leg and became less responsive and this episode lasted for few minutes and later on she recovered. There was another episode when the patient was in a wheelchair, and her eyes were rolled and again she noticed that the patient was shaking her hands and legs, after this the pa tient was confused for a few minutes. Currently the patient is lying comfortably in bed appears to be in no acute distress. On questioning her, she does not remember much about the episode that happened. She is denies having any headaches, blurring of vision or weakness of her extremities. She denies having any change in her speech. Patient denied having any fevers chills or rigors. No chest pain or palpitations. No cough or difficulty breathing. No abdominal pain nausea vomiting or diarrhea. No dysuria or hematuria. Patient never had a history of seizure disorder. She was treated for breast cancer and has been in remission since 1991. And she also has history of colon cancer in 2006. Patient was recently admitted to the hospital for large staghorn calculi in the left kidney. She had left percutaneous nephro lithotomy with laser lithotripsy by Dr. Solomon. And her daughter mentions that since being discharged from the hospital patient did not regain her strength back and could not ambulate by herself. In the ER at the time of admission patient's vitals temperature 98.2, heart rate 76, respiratory 16, blood pressure 104/62 saturating at 99% on room air. Patient had chest x-ray done in the ED showing no acute cardiopulmonary process CT of the head showing no acute intracranial hemorrhage. 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 On reviewing her labs white count of 6. 7, hemoglobin 8.3, platelets 357. Sodium 138, potassium 4.7, chloride 110, bicarb 22, BUN 28, creatinine 1.54. Urine analysis is positive for large leukocyte esterase large blood and negative for nitrites. On 04/20/2021 -patient is seen and examined at the bedside. Patient denied having any more seizures since the time of admission. She denies having any fevers chills or rigors. No chest pain or palpitations. No cough or difficulty in breathing. No abdominal pain nausea vomiting or diarrhea. No dysuria or hematuria. On reviewing the patient's vitals temperature of 97.7, heart rate 71, respiratory rate 18, blood pressure 108 x 62, saturating at 98% on room air. On reviewing the patient's labs from this morning white count of 4.7 hemoglobin 8.7 platelets 393. Sodium 139, potassium 5, chloride 112, bicarb 23, BUN 24, creatinine 1.31. Albumin 2.7. On 04/21/2021 -patient is seen and examined at bedside. She denies having any seizures since admission. No acute events reported by nursing staff. Patient's family members at the bedside. She denies having any fevers chills or rigors. No cough or difficulty breathing. No chest pain or palpitations. No about the nausea vomiting or diarrhea. Reviewing the vitals afebrile in the past 24 hours, heart rate 75, respiratory 15, blood pressure 98 x 60 saturating 100% on room air reviewing the labs white count of 5.2, hemoglobin 7.9, platelets 359. Sodium 144, potassium 5.6, chloride 114, bicarb 21, BUN 28, creatinine 1.4 Patient's medications have been reviewed she is on Tylenol, Eliquis, Lipitor, ceftriaxone, Keppra, Remeron, multivitamins Objective - Vital Signs Vital signs: Vital Signs Temp 98.5 F 04/21/21 08:16 Pulse 70 04/21/21 08:16 Resp 13 04/21/21 08:16 BP 115/52 04/21/21 08:16 Pulse Ox 99 04/21/21 08:16 Intake & Output 04/20/21 04/21/21 04/21/21 18:59 06:59 18:59 Output Total 650 Balance -650 Weight 46.72 kg Output: Urine 650 Other: Voiding Method External Catheter External Catheter # Voids 3 # Bowel Movements 1 - Exam PHYSICAL EXAMINATION: GENERAL: Comfortably sitting up in the bed appears to be no acute distress. HEENT: Pupils are round and equally reacting to light. EOMI. No scleral icterus. No conjunctival pallor. CARDIOVASCULAR: S1 and S2 present. No murmurs, rubs, or gallops. PULMONARY: Bilateral breath sounds positive. No wheeze or crackles. CHEST - Right breast implant ABDOMEN: Soft,Non -tender, normal bowel sounds. No guarding or rigidity. MUSCULOSKELETAL: No joint swelling or deformity. EXTREMITIES: Left Lower extremity bigger in girth compared to right NEUROLOGICAL: Gross neurological examination did not reveal any focal deficits. - Labs CBC & Chem 7: 04/22/21 07:06 04/22/21 07:06 Labs: Abnormal Lab Results - Last 24 Hours (Table) 04/20/21 04/20/21 04/21/21 Range/Units 14:40 14:40 05:36 RBC 2.95 L 2.76 L (3.80-5.40) m/uL Hgb 8.7 L 7.9 L (11.4-16.0) gm/dL Hct 27.7 L 26.7 L (34.0-46.0) % MCHC 29.6 L (32.0-37.0) g/dL Lymphocytes # 0.8 L 0.86 L (1.0-4.8) k/uL Potassium (3.5-5.5) mmol/L Chloride 112 H (98-107) mmol/L Carbon Dioxide (21.6-31.8) mmol/L BUN 24 H (7-17) mg/dL Creatinine 1.31 H (0.52-1.04) mg/dL Est GFR (CKD-EPI)AfAm (60.0-200.0) Est GFR (CKD-EPI)NonAf (60.0-200.0) Glucose 149 H (74-99) mg/dL Calcium (8.7-10.3) mg/dL Total Protein 5.2 L (6.3-8.2) g/dL Albumin 2.7 L (3.5-5.0) g/dL 04/21/21 Range/Units 05:36 RBC (3.80-5.40) m/uL Hgb (11.4-16.0) gm/dL Hct (34.0-46.0) % MCHC (32.0-37.0) g/dL Lymphocytes # (1.0-4.8) k/uL Potassium 5.6 H (3.5-5.5) mmol/L Chloride 114 H (98-107) mmol/L Carbon Dioxide 21.4 L (21.6-31.8) mmol/L BUN 28.0 H (7-17) mg/dL Creatinine (0.52-1.04) mg/dL Est GFR (CKD-EPI)AfAm 39.3 L (60.0-200.0) Est GFR (CKD-EPI)NonAf 33.9 L (60.0-200.0) Glucose 116 H (74-99) mg/dL Calcium 8.6 L (8.7-10.3) mg/dL Total Protein (6.3-8.2) g/dL Albumin (3.5-5.0) g/dL Microbiology - Last 24 Hours (Table) 04/20/21 12:00 Urine Culture - Preliminary Urine,Voided Assessment and Plan Assessment: ASSESSMENT New onset seizures Acute left popliteal vein DVT Chronic anemia CKD stage III Possible UTI History of breast cancer in 1991 status post mastectomy History of colon cancer in 2006 History of major depressive disorder Former smoker Severe protein calorie malnutrition PLAN: Continue with Xi as per Neurology recs Vascular surgery consulted started her on Eliquis 2.5 mg BID Slight drop in Hb , but no acive bleeding,will repeat CBC in am Urology has been consulted - sugested OP follow up Patient urinalysis for possible UTI so we will continue with ceftriaxone. Further recommendations to follow depending on the progress of patient.
[2021-04-22] MEDS: SENNOSIDES 8.6 MG TAB PO SCH ×2 (07:37→21:41)
[2021-04-22] MEDS: APIXABAN 2.5 MG TABLET PO SCH ×2 (07:37→21:41)
[2021-04-22] MEDS: MULTIVITAMINS, THERA 1 EACH TAB PO SCH (07:37)
[2021-04-22] MEDS: SODIUM CHLORIDE 0.9% 1,000 ML IV SCH ×2 (07:37→22:52)
[2021-04-22] MEDS: levETIRAcetam 500 MG TAB PO SCH ×2 (07:37→21:40)
[2021-04-22 08:45] LABS: African American GFR (CKD) 43 (>60 ml/min/1.73 sqM); Anion Gap 4 mmol/L; Blood Urea Nitrogen 28 mg/dL (7-17); Calcium 9.4 mg/dL (8.4-10.2); Carbon Dioxide 24 mmol/L (22-30); Chloride 113 mmol/L (98-107); Glucose 84 mg/dL (74-99); Non-African American GFR(CKD) 38 (>60 ml/min/1.73 sqM); Potassium 5.5 mmol/L (3.5-5.1); Sodium 141 mmol/L (137-145)
[2021-04-22 12:06] LABS: Basophils # (A) 0.03 X 10*3/uL (0.00-0.10); Basophils % (A) 0.6 %; Eosinophils # (A) 0.14 X 10*3/uL (0.04-0.35); Eosinophils % (A) 2.8 %; HCT 27.6 % (37.2-46.3); HGB 8.2 g/dL (12.0-15.0); Lymphocytes # (A) 0.79 X 10*3/uL (0.90-5.00); Lymphocytes % (A) 16.1 %; MCH 29.2 pg (27.0-32.0); MCHC 29.7 g/dL (32.0-37.0); MCV 98.2 fL (80.0-97.0); Mean Platelet Volume 10.2 fL (9.5-12.2); Monocytes # (A) 0.52 X 10*3/uL (0.20-1.00); Monocytes % (A) 10.6 %; Neutrophils # (A) 3.41 X 10*3/uL (1.80-7.70); Neutrophils % (A) 69.3 %; Platelet Count 370 X 10*3/uL (140-440); RBC 2.81 X 10*6/uL (4.10-5.20); RDW 14.4 % (11.5-14.5); WBC 4.92 X 10*3/uL (4.50-10.00)
--- NOTE | 2021-04-22 17:51 | P.PN ---
Subjective Progress Note Date: 04/22/21 Patient seen at bedside and per the patient's nurse the patient has not had any further seizure-like activity. Per the patient nurse she's doing well and that she's pending to be discharged tomorrow to [facility]. Per the patient she feels her left leg strength is improving but not back to baseline. Objective - Vital Signs Vital signs: Vital Signs Temp 97.9 F 04/22/21 14:00 Pulse 87 04/22/21 14:00 Resp 16 04/22/21 14:00 BP 97/61 04/22/21 14:00 Pulse Ox 98 04/22/21 14:00 Intake & Output 04/21/21 04/22/21 04/22/21 18:59 06:59 18:59 Intake Total 310 290 Output Total 500 400 Balance -500 -90 290 Weight 46.72 kg Intake: Intake, IV Titration 10 50 Amount Sodium Chloride 0.9% 1, 10 000 ml @ 50 mls/hr IV . Q20H [facility] Rx#:[id number] cefTRIAXone 1 gm In 50 Sodium Chloride 0.9% 50 ml @ 100 mls/hr IVPB Q24H [facility] Rx#:[id number] Oral 300 240 Output: Urine 500 400 Other: Voiding Method External Catheter External Catheter External Catheter # Voids 1 # Bowel Movements 1 1 - Exam GENERAL: The patient is lying in bed and is not in acute distress. NEUROLOGICAL: Higher mental function: The patient is awake, alert, oriented to self. She stated the year is 2019 but correctly stated the current month. She stated she was in the hospital and with options she stated it was [facility]. She correctly named the current [place] president with option. Patient is following commands. No aphasia and no neglect. Cranial nerves: The pupils are round, equal and reactive to light and accommodation. Visual garvey are full to confrontation throughout. Extraocular movement is intact no nystagmus is noted. Facial sensation is normal to touch throughout. The facial strength is normal throughout. Hearing is normal bilaterally to hand rub. Tongue is midline and moved [id number] without any difficulty. No dysarthria is noted. Shoulder shrug is normal bilaterally. Motor: Gait is defered. The strength is hard to assess because of cooperation but has left foot dorsiflexion is 3-4, 5- over left lower extremity. Also on right ankle had hard time assessing it. Otherwise 5 over 5 throughout. Normal tone and bulk. Sensation: Sensation is normal to touch throughout. Reflexes (right/left): 3+ over bilateral patellar and brachioradialis. Othe rwise 2+ throughout. Plantars: Upgoing over the left at baseline. Otherwise mute over the right. IMAGING: Routine EEG on 04/20/2021 is an abnormal routine EEG. The mild background sl owing suggestive of mild encephalopathy. There are no focal slowing, epileptiform discharges or seizure on this EEG. MRI of lumbar spine is reported as multilevel [id number] degenerative changes lumbar spine as detailed above. No large disc herniation evident. In the body they reported it is reported as a mild to moderate in the L2-L3 as well as L3-L4 as well as L4-L5. MR the brain is reported as no MRI evidence for recent infarct. Moderate diffuse cerebral atrophy and mild to moderate chronic small vessel ischemic change. Mild chronic maxillary sinus disease. - Labs CBC & Chem 7: 04/22/21 07:06 04/22/21 07:06 Labs: Abnormal Lab Results - Last 24 Hours (Table) 04/22/21 04/22/21 Range/Units 07:06 07:06 RBC 2.81 L (4.10-5.20) X 10*6/uL Hgb 8.2 L (12.0-15.0) g/dL Hct 27.6 L (37.2-46.3) % MCV 98.2 H (80.0-97.0) fL MCHC 29.7 L (32.0-37.0) g/dL Lymphocytes # 0.79 L (0.90-5.00) X 10*3/uL Potassium 5.5 H (3.5-5.1) mmol/L Chloride 113 H (98-107) mmol/L BUN 28 H (7-17) mg/dL Creatinine 1.29 H (0.52-1.04) mg/dL Microbiology - Last 24 Hours (Table) 04/20/21 12:00 Urine Culture - Final Urine,Voided Assessment and Plan Assessment: * New onset seizure. Unknown cause. 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 * Having lower extremity weakness for the past 1-2 weeks since having recurrent surgies of nephroliasis (described as feels her legs can't support her and mostly left foot). Possibly left foot drop vs possibly in addition deconditioning since surgery and result of DVT. MRI Lumbar does not explain her weakness. * Acute on chronic kidney insufficiency--improving. * Acute on chronic deep vein thrombosis in the left popliteal vein * History of right breast cancer 1991 * History of colon cancer 2006 s/p partial resection Plan: Continue Keppra 500 mg 1 tablet twice a day. Continue a seizure precaution and seizure pads. Continue Lipitor 10 mg daily at bedtime and recommend aspirin 81 mg for secondary stroke prophylaxis (especially with history of stroke). Is on Eliquis 2.5mg bid for DVT. Possibly consider EMG with [facility] as outpatient. Physical therapy and occupation therapy are on board We'll defer the rest of the medical management to the primary team Patient was notified that per [place] DMV, she cannot drive for 6 month until seizure-free, to avoid heights, avoid swimming unassisted and and using heavy machinery. Upon discharge the patient needs to follow up with a neurologist as an outpatient within 1-2 weeks Patient will be discharged to [facility] tomorrow. There is no further neurological work-up. Neurology will sign off. Please reconsult if needed. Ousmane Barreto MD Neuro-Hospitalist. Time with Patient: Less than 30
[2021-04-22] MEDS: MIRTAZAPINE 15 MG TAB PO SCH (21:41)
[2021-04-22] MEDS: ATORVASTATIN 10 MG TAB PO SCH (21:41)
[2021-04-23] MEDS: SENNOSIDES 8.6 MG TAB PO SCH ×2 (08:45→21:37)
[2021-04-23] MEDS: APIXABAN 2.5 MG TABLET PO SCH ×2 (08:45→21:37)
[2021-04-23] MEDS: MULTIVITAMINS, THERA 1 EACH TAB PO SCH (08:45)
[2021-04-23] MEDS: levETIRAcetam 500 MG TAB PO SCH ×2 (08:45→21:38)
--- NOTE | 2021-04-23 12:25 | P.PN ---
Subjective No acute overnight event, urine culture showed no growth. denies any flank pain or dysuria Objective - Vital Signs Vital signs: Vital Signs Temp 98.1 F 04/23/21 07:17 Pulse 66 04/23/21 07:17 Resp 16 04/23/21 07:17 BP 114/62 04/23/21 07:17 Pulse Ox 99 04/23/21 07:17 Intake & Output 04/22/21 04/23/21 04/23/21 18:59 06:59 18:59 Intake Total 490 Output Total 400 Balance 90 Weight 46.72 kg Intake: Intake, IV Titration 50 Amount cefTRIAXone 1 gm In 50 Sodium Chloride 0.9% 50 ml @ 100 mls/hr IVPB Q24H [facility] Rx#:[id number] Oral 440 Output: Urine 400 Other: Voiding Method External Catheter External Catheter External Catheter # Voids 1 # Bowel Movements 1 - Constitutional General appearance: Present: no acute distress - Gastrointestinal General gastrointestinal: Present: soft. Absent: distended, tenderness - Psychiatric Psychiatric: Present: A&O x's 3 - Labs CBC & Chem 7: 04/22/21 07:06 04/22/21 07:06 Assessment and Plan Assessment: 85 yo female with recent Left PCNL by Dr Rosenthal on 04/08,04/15. She is admitted to hospital with possible Seizure. urine culture showed no growth -can discontinue abx given negative culture -can f/u as an outpatient with Dr rosenthal
--- NOTE | 2021-04-23 17:58 | P.PN ---
Subjective Progress Note Date: 04/22/21 Principal diagnosis: Seziures, Acute DVT Ms. Doan is an 85-year-old female with past medical history of breast cancer in 1991, colon cancer in 2006, cognitive impairment/dementia, major depressive disorder brought in by her for evaluation of seizures. Patient's daughter at the bedside and mentions that earlier this morning she noticed that her mother was shaking her right arm and left leg and became less responsive and this episode lasted for few minutes and later on she recovered. There was another episode when the patient was in a wheelchair, and her eyes were rolled and again she noticed that the patient was shaking her hands and legs, after this the pat ient was confused for a few minutes. Currently the patient is lying comfortably in bed appears to be in no acute distress. On questioning her, she does not remember much about the episode that happened. She is denies having any headaches, blurring of vision or weakness of her extremities. She denies having any change in her speech. Patient denied having any fevers chills or rigors. No chest pain or palpitations. No cough or difficulty breathing. No abdominal pain nausea vomiting or diarrhea. No dysuria or hematuria. Patient never had a history of seizure disorder. She was treated for breast cancer and has been in remission since 1991. And she also has history of colon cancer in 2006. Patient was recently admitted to the hospital for large staghorn calculi in the left kidney. She had left percutaneous nephro lithotomy with laser lithotripsy by Dr. Solomon. And her daughter mentions that since being discharged from the hospital patient did not regain her strength back and could not ambulate by herself. In the ER at the time of admission patient's vitals temperature 98.2, heart rate 76, respiratory 16, blood pressure 104/62 saturating at 99% on room air. Patient had chest x-ray done in the ED showing no acute cardiopulmonary process CT of the head showing no acute intracranial hemorrhage. 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 On reviewing her labs white count of 6.7, hemoglobin 8.3, platelets 357. Sodium 138, potassium 4.7, chloride 110, bicarb 22, BUN 28, creatinine 1.54. Urine analysis is positive for large leukocyte esterase large blood and negative for nitrites. On 04/20/2021 -patient is seen and examined at the bedside. Patient denied having any more seizures since the time of admission. She denies having any fevers chills or rigors. No chest pain or palpitations. No cough or difficulty in breathing. No abdominal pain nausea vomiting or diarrhea. No dysuria or hematuria. On reviewing the patient's vitals temperature of 97.7, heart rate 71, respiratory rate 18, blood pressure 108 x 62, saturating at 98% on room air. On reviewing the patient's labs from this morning white count of 4.7 hemoglobin 8.7 platelets 393. Sodium 139, potassium 5, chloride 112, bicarb 23, BUN 24, creatinine 1.31. Albumin 2.7. On 04/21/2021 -patient is seen and examined at bedside. She denies having any seizures since admission. No acute events reported by nursing staff. Patient's family members at the bedside. She denies having any fevers chills or rigors. No cough or difficulty breathing. No chest pain or palpitations. No about the nausea vomiting or diarrhea. Reviewing the vitals afebrile in the past 24 hours, heart rate 75, respiratory 15, blood pressure 98 x 60 saturating 100% on room air reviewing the labs white count of 5.2, hemoglobin 7.9, platelets 359. Sodium 144, potassium 5.6, chloride 114, bicarb 21, BUN 28, creatinine 1.4 On 04/22/2021 -patient is sitting up in a chair by the bedside appears to be no acute distress. On having a discussion with the patient, she states that she is feeling low as she thinks she is like a burden to her family members. She was slightly tearful. Patient denied having any active complaints. No fever chills or rigors. Denied having any seizure-like activity. No cough or difficulty in breathing. She wants to be transferred back to her facility. On reviewing her vitals temperature 97.9, heart rate 89, respiratory rate 16, blood pressure 97/61 saturating at 98% on room air. Reviewing her labs white count of 4.9, hemoglobin 8.2, platelets 370. Sodium 141, potassium 5.5, chloride 113, bicarb 24, BUN 28, creatinine 1.29. Urine culture no growth. Patient's medications have been reviewed she is on Tylenol, Eliquis, Lipitor, ceftriaxone, Keppra, Remeron, multivitamins Objective - Vital Signs Vital signs: Vital Signs Temp 97.6 F 04/23/21 14:00 Pulse 82 04/23/21 14:00 Resp 16 04/23/21 14:00 BP 91/54 04/23/21 14:00 Pulse Ox 92 L 04/23/21 14:00 Intake & Output 04/22/21 04/23/21 04/23/21 18:59 06:59 18:59 Intake Total 490 200 Output Total 400 900 Balance 90 -700 Weight 46.72 kg Intake: Intake, IV Titration 50 Amount cefTRIAXone 1 gm In 50 Sodium Chloride 0.9% 50 ml @ 100 mls/hr IVPB Q24H [facility] Rx#:[id number] Oral 440 200 Output: Urine 400 900 Other: Voiding Method External Catheter External Catheter External Catheter # Voids 1 # Bowel Movements 1 - Exam PHYSICAL EXAMINATION: GENERAL: Comfortably sitting up in the bed appears to be no acute distress. HEENT: Pupils are round and equally reacting to light. EOMI. No scleral icterus. No conjunctival pallor. CARDIOVASCULAR: S1 and S2 present. No murmurs, rubs, or gallops. PULMONARY: Bilateral breath sounds positive. No wheeze or crackles. CHEST - Right breast implant ABDOMEN: Soft,Non -tender, normal bowel sounds. No guarding or rigidity. MUSCULOSKELETAL: No joint swelling or deformity. EXTREMITIES: Left Lower extremity bigger in girth compared to right NEUROLOGICAL: Gross neurological examination did not reveal any focal deficits. Low mood - Labs CBC & Chem 7: 04/22/21 07:06 04/22/21 07:06 Assessment and Plan Assessment: ASSESSMENT New onset seizures Acute left popliteal vein DVT Chronic anemia CKD stage III Hyperkalemia Possible UTI History of breast cancer in 1991 status post mastectomy History of colon cancer in 2006 History of major depressive disorder Former smoker Severe protein calorie malnutrition PLAN: Provided counselling as she was felling low. She wants to go back to her facility Continue with Xi and Neurology signed off Vascular surgery consulted started her on Eliquis 2.5 mg BID Hyperkalemia - pt refusing Kayxelate Urology has been consulted - sugested OP follow up Patient urinalysis for possible UTI so we will continue with ceftriaxone. Further recommendations to follow depending on the progress of patient. [facility]
[2021-04-23] MEDS: MIRTAZAPINE 15 MG TAB PO SCH (21:37)
[2021-04-23] MEDS: SODIUM CHLORIDE 0.9% 1,000 ML IV SCH (21:38)
[2021-04-23] MEDS: ATORVASTATIN 10 MG TAB PO SCH (21:38)
--- NOTE | 2021-04-23 23:47 | P.PN ---
Subjective Progress Note Date: 04/23/21 Principal diagnosis: Seziures, Acute DVT Ms. Doan is an 85-year-old female with past medical history of breast cancer in 1991, colon cancer in 2006, cognitive impairment/dementia, major depressive disorder brought in by her for evaluation of seizures. Patient's daughter at the bedside and mentions that earlier this morning she noticed that her mother was shaking her right arm and left leg and became less responsive and this episode lasted for few minutes and later on she recovered. There was another episode when the patient was in a wheelchair, and her eyes were rolled and again she noticed that the patient was shaking her hands and legs, after this the pat ient was confused for a few minutes. Currently the patient is lying comfortably in bed appears to be in no acute distress. On questioning her, she does not remember much about the episode that happened. She is denies having any headaches, blurring of vision or weakness of her extremities. She denies having any change in her speech. Patient denied having any fevers chills or rigors. No chest pain or palpitations. No cough or difficulty breathing. No abdominal pain nausea vomiting or diarrhea. No dysuria or hematuria. Patient never had a history of seizure disorder. She was treated for breast cancer and has been in remission since 1991. And she also has history of colon cancer in 2006. Patient was recently admitted to the hospital for large staghorn calculi in the left kidney. She had left percutaneous nephro lithotomy with laser lithotripsy by Dr. Solomon. And her daughter mentions that since being discharged from the hospital patient did not regain her strength back and could not ambulate by herself. In the ER at the time of admission patient's vitals temperature 98.2, heart rate 76, respiratory 16, blood pressure 104/62 saturating at 99% on room air. Patient had chest x-ray done in the ED showing no acute cardiopulmonary process CT of the head showing no acute intracranial hemorrhage. 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 On reviewing her labs white count of 6.7, hemoglobin 8.3, platelets 357. Sodium 138, potassium 4.7, chloride 110, bicarb 22, BUN 28, creatinine 1.54. Urine analysis is positive for large leukocyte esterase large blood and negative for nitrites. On 04/20/2021 -patient is seen and examined at the bedside. Patient denied having any more seizures since the time of admission. She denies having any fevers chills or rigors. No chest pain or palpitations. No cough or difficulty in breathing. No abdominal pain nausea vomiting or diarrhea. No dysuria or hematuria. On reviewing the patient's vitals temperature of 97.7, heart rate 71, respiratory rate 18, blood pressure 108 x 62, saturating at 98% on room air. On reviewing the patient's labs from this morning white count of 4.7 hemoglobin 8.7 platelets 393. Sodium 139, potassium 5, chloride 112, bicarb 23, BUN 24, creatinine 1.31. Albumin 2.7. On 04/21/2021 -patient is seen and examined at bedside. She denies having any seizures since admission. No acute events reported by nursing staff. Patient's family members at the bedside. She denies having any fevers chills or rigors. No cough or difficulty breathing. No chest pain or palpitations. No about the nausea vomiting or diarrhea. Reviewing the vitals afebrile in the past 24 hours, heart rate 75, respiratory 15, blood pressure 98 x 60 saturating 100% on room air reviewing the labs white count of 5.2, hemoglobin 7.9, platelets 359. Sodium 144, potassium 5.6, chloride 114, bicarb 21, BUN 28, creatinine 1.4 On 04/22/2021 -patient is sitting up in a chair by the bedside appears to be no acute distress. On having a discussion with the patient, she states that she is feeling low as she thinks she is like a burden to her family members. She was slightly tearful. Patient denied having any active complaints. No fever chills or rigors. Denied having any seizure-like activity. No cough or difficulty in breathing. She wants to be transferred back to her facility. On reviewing her vitals temperature 97.9, heart rate 89, respiratory rate 16, blood pressure 97/61 saturating at 98% on room air. Reviewing her labs white count of 4.9, hemoglobin 8.2, platelets 370. Sodium 141, potassium 5.5, chloride 113, bicarb 24, BUN 28, creatinine 1.29. Urine culture no growth. On 04/23/2021 - patient is seen and examined at the bedside. She has been sitting comfortably in a chair by the bedside claims. Patient does not have any chest pain or palpitations. No cough or difficulty. No abdominal pain nausea vomiting or diarrhea. She complains of generalized weakness and fatigue. On reviewing the vitals temperature of 98.1, heart rate 67, respiratory 16, blood pressure 114/62 saturating at 99% on room air. On reviewing the blood work from yesterday white count of 4.9, hemoglobin 8.2, platelets 370. Sodium 141, potassium 5.5, chloride 113, bicarb 8, creatinine 1.29. No new labs from this morning. Patient's medications have been reviewed she is on Tylenol Eliquis Lipitor Keppr a Remeron multivitamin Narcan senna. Ceftriaxone has been discontinued as the urine culture was negative Objective - Vital Signs Vital signs: Vital Signs Temp 97.6 F 04/23/21 14:00 Pulse 82 04/23/21 14:00 Resp 16 04/23/21 14:00 BP 91/54 04/23/21 14:00 Pulse Ox 92 L 04/23/21 14:00 Intake & Output 04/22/21 04/23/21 04/23/21 18:59 06:59 18:59 Intake Total 490 200 Output Total 400 900 Balance 90 -700 Weight 46.72 kg Intake: Intake, IV Titration 50 Amount cefTRIAXone 1 gm In 50 Sodium Chloride 0.9% 50 ml @ 100 mls/hr IVPB Q24H [facility] Rx#:[id number] Oral 440 200 Output: Urine 400 900 Other: Voiding Method External Catheter External Catheter External Catheter # Voids 1 # Bowel Movements 1 - Exam PHYSICAL EXAMINATION: GENERAL: Comfortably sitting up in the bed appears to be no acute distress. HEENT: Pupils are round and equally reacting to light. EOMI. No scleral icterus. No conjunctival pallor. CARDIOVASCULAR: S1 and S2 present. No murmurs, rubs, or gallops. PULMONARY: Bilateral breath sounds positive. No wheeze or crackles. ABDOMEN: Soft,Non -tender, normal bowel sounds. No guarding or rigidity. MUSCULOSKELETAL: No joint swelling or deformity. EXTREMITIES: Left Lower extremity bigger in girth compared to right NEUROLOGICAL: Gross neurological examination did not reveal any focal deficits. - Labs CBC & Chem 7: 04/22/21 07:06 04/22/21 07:06 Assessment and Plan Assessment: ASSESSMENT New onset seizures Acute left popliteal vein DVT Chronic anemia CKD stage III Possible UTI History of breast cancer in 1991 status post mastectomy History of colon cancer in 2006 History of major depressive disorder Former smoker Severe protein calorie malnutrition PLAN: Neurology signed off - [facility] consulted started her on Eliquis 2.5 mg BID Hb is stable Urology has been consulted - sugested OP follow up Discontinue with ceftriaxone as urine culture is negative Awaiting prior auth to be discharged.
[2021-04-24 07:22] VITALS: BP 105/52; PULSE 60; RESP 16; TEMP 98.2
[2021-04-24] MEDS: APIXABAN 2.5 MG TABLET PO SCH (08:12)
[2021-04-24] MEDS: SENNOSIDES 8.6 MG TAB PO SCH (08:12)
[2021-04-24] MEDS: MULTIVITAMINS, THERA 1 EACH TAB PO SCH (08:12)
[2021-04-24] MEDS: levETIRAcetam 500 MG TAB PO SCH (08:12)
[2021-04-24 09:19] LABS: Basophils % (A) 1 %; Eosinophils # (A) 0.2 k/uL (0-0.7); Eosinophils % (A) 3 %; HCT 27.6 % (34.0-46.0); HGB 9.1 gm/dL (11.4-16.0); Hypochromasia Slight; Lymphocytes # (A) 0.9 k/uL (1.0-4.8); Lymphocytes % (A) 19 %; MCH 30.6 pg (25.0-35.0); MCHC 33.1 g/dL (31.0-37.0); MCV 92.3 fL (80.0-100.0); Mean Platelet Volume 7.6; Monocytes # (A) 0.4 k/uL (0-1.0); Monocytes % (A) 9 %; Neutrophils # (A) 3.1 k/uL (1.3-7.7); Neutrophils % (A) 66 %; Platelet Count 400 k/uL (150-450); RBC 2.99 m/uL (3.80-5.40); RDW 14.7 % (11.5-15.5); WBC 4.7 k/uL (3.8-10.6)
[2021-04-24 10:33] LABS: African American GFR (CKD) 53 (>60 ml/min/1.73 sqM); Anion Gap 4 mmol/L; Blood Urea Nitrogen 37 mg/dL (7-17); Calcium 9.5 mg/dL (8.4-10.2); Carbon Dioxide 27 mmol/L (22-30); Chloride 108 mmol/L (98-107); Glucose 86 mg/dL (74-99); Non-African American GFR(CKD) 46 (>60 ml/min/1.73 sqM); Potassium 5.2 mmol/L (3.5-5.1); Sodium 139 mmol/L (137-145)
[2021-04-24] MEDS ORDERED: DEXTROSE 50% SYRINGE 50 ML IVP STA (11:29)
--- NOTE | 2021-04-24 11:36 | P.DS ---
Providers Date of admission: 04/19/21 15:43 Expected date of discharge: 04/24/21 Attending physician: Kirsten Navarrete Consults: 04/19/21 15:43 Consult Physician Routine Consulting Provider: Ousmane Barreto Consult Reason/Comments: Concern for new onset seizure Do you want consulting provider notified?: Yes 04/19/21 19:07 Consult Physician Routine Consulting Provider: Koby Gerard Consult Reason/Comments: Recent urologic surgery, readmission for seizure. Do you want consulting provider notified?: Yes Primary care physician: [facility] Course: Final diagnosis New onset seizures Acute left popliteal vein DVT Chronic anemia CKD stage III Possible UTI History of breast cancer in 1991 status post mastectomy History of colon cancer in 2006 History of major depressive disorder Former smoker Severe protein calorie malnutrition full code Discharge disposition Patient is being discharged in a stable condition with guarded prognosis to [facility]. Patient will follow-up with nurse practitioner Viji Doran in the outpatient setting upon discharge. Patient is to follow-up with urology, neurology, vascular surgery in the outpatient setting. Total time taken is greater than 35 minutes. Hospital course Ms. Doan is an 85-year-old female with past medical history of breast cancer in 1991, colon cancer in 2006, cognitive impairment/dementia, major depressive disorder brought in by her for evaluation of seizures. Patient's daughter at the bedside and mentions that earlier this morning she noticed that her mother was shaking her right arm and left leg and became less responsive and this episode lasted for few minutes and later on she recovered. There was another episode when the patient was in a wheelchair, and her eyes were rolled and again she noticed that the patient was shaking her hands and legs, after this the patient was confused for a few minutes. Currently the patient is lying comfortably in bed appears to be in no acute distress. On questioning her, she does not remember much about the episode that happened. She is denies having any headaches, blurring of vision or weakness of her extremities. She denies having any change in her speech. Patient denied having any fevers chills or rigors. No chest pain or palpitations. No cough or difficulty breathing. No abdominal pain nausea vomiting or diarrhea. No dysuria or hematuria. Patient never had a history of seizure disorder. She was treated for breast cancer and has been in remission since 1991. And she also has history of colon cancer in 2006. Patient was recently admitted to the hospital for large staghorn calculi in the left kidney. She had left percutaneous nephro lithotomy with laser lithotripsy by Dr. Solomon. And her daughter mentions that since being discharged from the hospital patient did not regain her strength back and could not ambulate by herself. In the ER at the time of admission patient's vitals temperature 98.2, heart rate 76, respiratory 16, blood pressure 104/62 saturating at 99% on room air. Patient had chest x-ray done in the ED showing no acute cardiopulmonary process CT of the head showing no acute intracranial hemorrhage. 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 On reviewing her labs white count of 6.7, hemoglobin 8.3, platelets 357. Sodium 138, potassium 4.7, chloride 110, bicarb 22, BUN 28, creatinine 1.54. Urine analysis is positive for large leukocyte esterase large blood and negative for nitrites. On 04/20/2021 -patient is seen and examined at the bedside. Patient denied having any more seizures since the time of admission. She denies having any fevers chills or rigors. No chest pain or palpitations. No cough or difficulty in breathing. No abdominal pain nausea vomiting or diarrhea. No dysuria or hematuria. On reviewing the patient's vitals temperature of 97.7, heart rate 71, respiratory rate 18, blood pressure 108 x 62, saturating at 98% on room air. On reviewing the patient's labs from this morning white count of 4.7 hemoglobin 8.7 platelets 393. Sodium 139, potassium 5, chloride 112, bicarb 23, BUN 24, creatinine 1.31. Albumin 2.7. On 04/21/2021 -patient is seen and examined at bedside. She denies having any seizures since admission. No acute events reported by nursing staff. Patient's family members at the bedside. She denies having any fevers chills or rigors. No cough or difficulty breathing. No chest pain or palpitations. No about the nausea vomiting or diarrhea. Reviewing the vitals afebrile in the past 24 hours, heart rate 75, respiratory 15, blood pressure 98 x 60 saturating 100% on room air reviewing the labs white count of 5.2, hemoglobin 7.9, platelets 359. Sodium 144, potassium 5.6, chloride 114, bicarb 21, BUN 28, creatinine 1.4 On 04/22/2021 -patient is sitting up in a chair by the bedside appears to be no acute distress. On having a discussion with the patient, she states that she is feeling low as she thinks she is like a burden to her family members. She was slightly tearful. Patient denied having any active complaints. No fever chills or rigors. Denied having any seizure-like activity. No cough or difficulty in breathing. She wants to be transferred back to her facility. On reviewing her vitals temperature 97.9, heart rate 89, respiratory rate 16, blood pressure 97/61 saturating at 98% on room air. Reviewing her labs white count of 4.9, hemoglobin 8.2, platelets 370. Sodium 141, potassium 5.5, chloride 113, bicarb 24, BUN 28, creatinine 1.29. Urine culture no growth. On 04/23/2021 - patient is seen and examined at the bedside. She has been sitting comfortably in a chair by the bedside claims. Patient does not have any chest pain or palpitations. No cough or difficulty. No abdominal pain nausea vomiting or diarrhea. She complains of generalized weakness and fatigue. On reviewing the vitals temperature of 98.1, heart rate 67, respiratory 16, blood pressure 114/62 saturating at 99% on room air. On reviewing the blood work from yesterday white count of 4.9, hemoglobin 8.2, platelets 370. Sodium 141, potassium 5.5, chloride 113, bicarb 8, creatinine 1.29. No new labs from this morning. 04/24/2021 Patient is seen in follow-up this morning currently sitting up in the chair with no acute overnight issues. Patient will continue on Keppra 500 mg twice daily and will need outpatient follow-up with neurology in the next 1-2 weeks. Patient will also follow-up with urology outpatient once [facility]. Patient to follow-up with vascular surgery [facility] outpatient in 2-3 weeks as well. Patient was started on anticoagulant and will continue. Patient has received insurance authorization and will be returning [facility]. Currently no reports of chest pain, shortness of breath, or palpitations. Patient is afebrile. No reports of nausea or vomiting and patient is tolerating diet. Patient will be going to [facility] today. On exam vital signs are stable. Cardio S1, S2 are muffled. Respiratory system shows diminished breath sounds at the bases with no wheezing or rhonchi noted. Abdomen is soft and nontender. Nervous system shows diffuse weakness. Please refer to medication reconciliation sheet for a list of medications. Patient Condition at Discharge: Good Plan - Discharge Summary Discharge Rx Participant: No New Discharge Prescriptions: New Sennosides [Senokot] 8.6 mg PO BID tab Acetaminophen Tab [Tylenol] 650 mg PO Q6HR PRN tab PRN Reason: Mild Pain Or Fever > 100.5 Apixaban [Eliquis] 2.5 mg PO BID tablet levETIRAcetam [Keppra] 500 mg PO Q12HR tab Continue Multivitamins, Thera [Multivitamin (formulary)] 1 tab PO DAILY@0800 Atorvastatin [Lipitor] 10 mg PO HS Acetaminophen Tab [Tylenol] 650 mg PO Q6H PRN PRN Reason: Pain Mirtazapine [Remeron] 7.5 mg PO HS Discontinued Sulfamethox-Tmp 800-160Mg [Bactrim DS 800-160 mg] 1 tab PO BID@0800,1999 Discharge Medication List Multivitamins, Thera [Multivitamin (formulary)] 1 tab PO DAILY@0800 08/18/20 [History] Atorvastatin [Lipitor] 10 mg PO HS 04/02/21 [History] Mirtazapine [Remeron] 7.5 mg PO HS 04/02/21 [History] Acetaminophen Tab [Tylenol] 650 mg PO Q6H PRN 04/19/21 [History] Acetaminophen Tab [Tylenol] 650 mg PO Q6HR PRN tab 04/24/21 [Rx] Apixaban [Eliquis] 2.5 mg PO BID tablet 04/24/21 [Rx] Sennosides [Senokot] 8.6 mg PO BID tab 04/24/21 [Rx] levETIRAcetam [Keppra] 500 mg PO Q12HR tab 04/24/21 [Rx] Follow up Appointment(s)/Referral(s): Viji Doran NPC [Nurse Practitioner] - As Needed Jessee Rivera DO [STAFF PHYSICIAN] - 3 Weeks [facility] [place], [NON-STAFF] - As Needed Mamadou Boston MD [Medical Doctor] - 1 Week Koby Gerard MD [STAFF PHYSICIAN] - 2 Weeks Ambulatory/Diagnostic Orders: Complete Blood Count w/diff [LAB.AMB] Time Frame: 3 Days, Location: None Selected Patient Instructions/Handouts: Seizure/Epilepsy Discharge Instructions & Follow-Up Activity/Diet/Wound Care/Special Instructions: Patient is going to [facility] [place] Activity as tolerated continue regular diet Continue with medications as prescribed Follow-up with urology outpatient Follow-up with primary care provider upon discharge Follow-up neurology outpatient Follow-up vascular surgery outpatient Recommend repeat labs of CBC and BMP in 2-3 days Discharge Disposition: TRANSFER TO SNF/ECF
[2021-04-24] MEDS ORDERED: INSULIN REGULAR 100 UNIT/ML VIAL (IV) IV ONE (12:00)
== END 2021-04-24 13:16 | DRG 100 ==
LOC: EC 12:39 → 4SSUR 15:43
PROVIDERS: ADMIT Hospitalist; ATTEND Hospitalist
DX: R56.9 Unspecified convulsions (principal); E43 Unspecified severe protein-calorie malnutrition; I82.432 Acute embolism and thrombosis of left popliteal vein; I82.532 Chronic embolism and thrombosis of left popliteal vein; N18.30 Chronic kidney disease, stage 3 unspecified; F32.9 Major depressive disorder, single episode, unspecified; F03.90 Unspecified dementia, unspecified severity, without behavioral disturbance, psychotic disturbance, mood disturbance, and anxiety; E87.5 Hyperkalemia; I73.9 Peripheral vascular disease, unspecified; K52.9 Noninfective gastroenteritis and colitis, unspecified; R32 Unspecified urinary incontinence; N20.0 Calculus of kidney; D64.9 Anemia, unspecified; R29.6 Repeated falls; R41.89 Other symptoms and signs involving cognitive functions and awareness; Z87.891 Personal history of nicotine dependence; Z85.3 Personal history of malignant neoplasm of breast; Z85.038 Personal history of other malignant neoplasm of large intestine; Z85.828 Personal history of other malignant neoplasm of skin; Z90.710 Acquired absence of both cervix and uterus; Z87.442 Personal history of urinary calculi; Z87.440 Personal history of urinary (tract) infections; Z86.73 Personal history of transient ischemic attack (TIA), and cerebral infarction without residual deficits; Z79.899 Other long term (current) drug therapy; Z74.01 Bed confinement status; Z99.3 Dependence on wheelchair
CPT/HCPCS: 36415; 70450; 70551; 71046; 72148; 80048; 80053; 81001; 83735; 84484; 85025; 85610; 85730; 87086; 93005; 95816; 96360; 99285

== ENCOUNTER → 2022-02-23 | Outpatient (CLI) | payer MEDICARE ==
--- NOTE | 2022-02-23 10:59 | XR ---
EXAMINATION TYPE: XR KUB DATE OF EXAM: 02/23/2022 COMPARISON: 04/15/2021 HISTORY: Renal stone TECHNIQUE: One view abdominal series FINDINGS: Right kidney: There is a 5 mm calcification overlying the right kidney. Left kidney: There are approximate 6 small calcifications overlying the lower pole the left kidney. T he largest measures a diameter of 3 mm. However, there also appears to be calcification just superior to the L4 left transverse process measuring a diameter of 3.7 mm not definitively seen on prior exam and may represent ureteral calculus. Arthropathy of the hips. Degenerative change lower lumbar spine. Previous surgery in the abdomen note d. Bowel gas pattern nonspecific. Calcifications in the pelvis are similar to the prior exam and stab le. IMPRESSION: 1. Stable 5 mm right renal calculus. 2. Interval near complete resolution of left groin calculus with 6 small fragments noted as measured above with the largest measuring 3 mm. 3. Findings suspicious for proximal ureteral calculus measuring 3.7 mm in diameter adjacent to the L4 left transverse process.
== END | disposition home or self-care (01) ==
LOC: RADXRMAIN 10:17
PROVIDERS: ATTEND Urology
DX: N20.0 Calculus of kidney (principal)
CPT/HCPCS: 74018